=== PATIENT | male | born 1955 | race Caucasian/White ===

== ENCOUNTER 2021-04-01 17:54 | Inpatient (IN) | payer MEDICARE, SELFPAY ==
[2021-04-01 18:02] VITALS: BP 196/98; PULSE 79; RESP 15; O2SAT 100; BMI 29.7
--- NOTE | 2021-04-01 18:09 | ED_ITS ---
HPI - Chest Pain General: Chief Complaint: Chest Pain Stated Complaint: Chest Pains Time Seen by Provider: 04/01/21 18:08 History of Present Illness: Mr. Garcia is a 65-year-old gentleman with significant past medical history of CVA, NM with PCI, dyslipidemia, hypertension, and tobaccoism who presents to the emergency department due to chest pain. He reports pressure in the middle of his chest without significant radiation. Symptoms in the past been exertional however of pain increasing in frequency and intensity. Episode today is now largely constant and not relieved by rest like previous episodes. He denies other associated typical cardiac features. Intensity symptoms is moderate to severe. Course of been worsening. No other specific changes in health, exacerbating, relieving factors identified. Pertinent past history: coronary artery disease, prior NM and other Onset (ago): hour(s) Timing of current episode: constant Prior episodes: Yes Onset: during exertion Pain location: substernal Pain radiation: none Severity: moderate Quality: heaviness Relieving factors: nothing Exacerbating factors: exertion Review of Systems General: Reports: 10 or more systems reviewed and unremarkable except in HPI and below PFSH ED PFSH: Medical History (Updated 04/04/21 @ 00:00 by ) ASHD (arteriosclerotic heart disease) Chest pain COPD (chronic obstructive pulmonary disease) CVA (cerebral vascular accident) DJD (degenerative joint disease), lumbar Dyslipidemia Essential hypertension Glucose intolerance History of subarachnoid hemorrhage Myocardial infarction Statin intolerance Tobacco abuse Surgical History S/P angioplasty with stent S/P appendectomy Family History Mother CAD (coronary artery disease) Social History Smoking and tobacco status: current every day smoker cigarettes Alcohol intake: former Household members: significant other Marital status: Life Partner Current occupational status: disabled Current gender identity: Male Physical Exam Const: COMMON NORMALS: alert GENERAL APPEARANCE: cooperative and well developed HENMT: COMMON NORMALS: normocephalic and atraumatic HEAD & SCALP: normocephalic and atraumatic Eye: COMMON NORMALS: conjunctivae normal CONJUNCTIVA: Yes conjunctivae normal SCLERA: sclerae normal Neck/C-Spine: COMMON NORMALS: supple GENERAL: Yes trachea midline Resp: COMMON NORMALS: normal respiratory effort EFFORT & INSPECTION: Yes able to speak in complete sentences Cardio: COMMON NORMALS: regular rate and regular rhythm RATE: regular rate RHYTHM: regular rhythm GI: COMMON NORMALS: Soft to palpation PALPATION: Yes Soft to palpation and No Tenderness to palpation present (GI) PERCUSSION: normal to percussion Extremity: GENERAL: Yes normal exam except as noted and No edema Neuro: COMMON NORMALS: moves all extremities SENSORIUM/ORIENTATION: Yes alert and No Orientation impaired Psych: COMMON NORMALS: mental status grossly normal and Normal thought process present THOUGHT PROCESS: Normal thought process present Course ED course: - Patient was seen and evaluated by me at bedside - Patient placed on cardiac monitors, IV access obtained - Initial evaluation notable for exam as above - Aspirin given - Labs notable for no leukocytosis, normal hemoglobin. Metabolic panel without acute derangement to explain symptoms. Initial troponin is elevated with +2- hour troponin. - Imaging notable for no acute finding on chest x-ray to explain symptoms - Discussed case with cardiology on-call, ordered Plavix however the patient reports that he is unable to take Plavix, did order therapeutic Lovenox. Plan to keep n.p.o. for potential intervention. - Upon serial reexamination after treatment the patient was similar to improved with resolution of chest pain - Based on patient history, evaluation, labs, and imaging as interpreted the most likely cause of the patient's condition is NSTEMI - The results of ED evaluation were discussed with the patient including plan for admission due to requirement for level of care not available if discharged to prevent significant worsening/deterioration. - Hospitalist service contacted and agreed admit the patient - Patient was admitted without further deterioration or significant events. Note: Click bubbles or prepopulated jarquin in note writing are used for assistance w ith data collection and billing and are inherently more limited than narrative and other text portions of this note. Please use narrative for additional clinical history and defer to narrative/free test for any case of contradictory information. If information appears in only free text or click bubble it should be considered present or absent as reported. Please contact note fiction and nonfiction prose writer for clarifications of clinical information or contradictory information. MDM is a brief summary, contradictory or erroneous seeming information should be clarified and full note should be reviewed. Vital Signs: Vital signs: Vital Signs Temperature 98.3 F 04/03/21 05:47 Pulse Rate 74 04/03/21 10:33 Respiratory Rate 20 H 04/03/21 05:47 Blood Pressure 146/93 04/03/21 05:47 Pulse Oximetry 96 04/03/21 05:47 MDM - Chest Pain Medical Decision Making 65-year-old gentleman with history of NM status post PCI presenting with increasing frequency and now constant chest pressure without other typical cardiac features. Patient found to have NSTEMI and admitted to the hospital for further treatment and management. Medical Records I reviewed the patient's medical records. Lab Data I reviewed the patient's lab results. : 04/03/21 03:25 04/03/21 03:25 Radiology Impressions Chest X-Ray 04/01/21 18:23 IMPRESSION: No acute findings. Laboratory Results WBC 9.0 10^3/uL (4.0-10.0) 04/01/21 18:00 RBC 4.61 10^6/uL (4.1-5.3) 04/01/21 18:00 Hgb 14.9 g/dL (11.7-16.6) 04/01/21 18:00 Hct 42.5 % (42.0-52.0) 04/01/21 18:00 MCV 92.2 fl (80-94) 04/01/21 18:00 MCH 32.3 pg (28.0-34.0) 04/01/21 18:00 MCHC 35.1 g/dL (30.0-36.0) 04/01/21 18:00 RDW 12.7 % (12.1-15.1) 04/01/21 18:00 Plt Count 202 10^3/cmm (130-400) 04/01/21 18:00 MPV 12.0 fL (7.4-10.4) H 04/01/21 18:00 Neut % (Auto) 58.6 % 04/01/21 18:00 Lymph % (Auto) 32.6 % 04/01/21 18:00 [place] % (Auto) 6.0 % 04/01/21 18:00 Eos % (Auto) 2.0 % 04/01/21 18:00 Baso % (Auto) 0.6 % 04/01/21 18:00 Neut # (Auto) 5.30 10^3/uL (1.8-7.7) 04/01/21 18:00 Lymph # (Auto) 3.0 10^3/uL (0.8-4.8) 04/01/21 18:00 [place] # (Auto) 0.5 10^3/uL (0.2-0.9) 04/01/21 18:00 Eos # (Auto) 0.2 10^3/uL (0.0-0.8) 04/01/21 18:00 Baso # (Auto) 0.1 10^3/uL (0.0-0.1) 04/01/21 18:00 Nucleated RBC % (auto) 0 % 04/01/21 18:00 Nucleated RBCs # 0.0 /100WBC 04/01/21 18:00 Sodium 138 mmol/L (136-145) 04/01/21 18:00 Potassium 4.1 mmol/L (3.5-5.1) 04/01/21 18:00 Chloride 104 mmol/L (98-107) 04/01/21 18:00 Carbon Dioxide 23 mmol/L (22-29) 04/01/21 18:00 Anion Gap 15.1 (5-19) 04/01/21 18:00 BUN 12 mg/dL (8-23) 04/01/21 18:00 Creatinine 0.8 mg/dL (0.7-1.2) 04/01/21 18:00 GFR Calculation 97.6 mL/min (90-130) 04/01/21 18:00 Glucose 99 mg/dL (65-115) 04/01/21 18:00 Calculated Osmolality 286 mOsm/kg (285-295) 04/01/21 18:00 Calcium 9.6 mg/dL (8.5-10.5) 04/01/21 18:00 Total Bilirubin 0.3 mg/dL (0.15-1.2) 04/01/21 18:00 AST 21 U/L (0-40) 04/01/21 18:00 ALT 27 U/L (0-41) 04/01/21 18:00 Alkaline Phosphatase 93 IU/L (40-130) 04/01/21 18:00 Troponin T Baseline 70 ng/L (0-15) H 04/01/21 18:00 Troponin T 120 Minute 91.11 ng/L (0-15) H 04/01/21 20:36 Delta Troponin T 21.11 ABS# (0-10) H* 04/01/21 20:36 Troponin T Hi Sens 6Hr 104.3 ng/L (0-15) H 04/02/21 00:30 Troponin T Hi Sens 6Hr Delta 34.3 ng/L (0-12) H* 04/02/21 00:30 NT-Pro-B Natriuret Pep 228 pg/mL (0-125) H 04/01/21 18:00 Total Protein 6.8 g/dL (6.6-8.7) 04/01/21 18:00 Albumin 4.5 g/dL (3.5-5.2) 04/01/21 18:00 Globulin 2.3 g/dL (1.3-4.6) 04/01/21 18:00 Lipase 37 U/L (13-60) 04/01/21 18:00 EKG Data EKG 1: I personally reviewed and interpreted this EKG as follows: EKG interpretation date: 04/29/21 EKG interpretation time: 18:14 Interpretation: Twelve-lead EKG shows a regular rhythm at a rate of 78. ID interval 153, QRS duration 92, QTc 399. Normal axis. Interpretation: Sinus rhythm Discharge Plan Discharge Patient Disposition: Admitted As Inpatient Admit Provider: Josee Rodriguez Clinical Impression: Acute non-ST elevation myocardial infarction (NSTEMI) Condition: Stable Discharge Diet: Cardiac Discharge Activity: Increase activity as tolerated Coding Level of Care Code ED Boiler Plant Operator for Chg Jesús
--- NOTE | 2021-04-01 18:23 | XRR_ITS ---
PROCEDURE INFORMATION: Exam: XR Chest Exam date and time: 04/01/2021 6:23 PM Age: 65 years old Clinical indication: Sternal or substernal pain and left-sided; Additional info: Chest pain TECHNIQUE: Imaging protocol: XR of the chest. Views: 1 view. COMPARISON: CR Chest 1 [place] [id number] 02/14/2017 4:21 PM FINDINGS: Lungs: Unremarkable. No consolidation. Pleural spaces: Unremarkable. No pleural effusion. No pneumothorax. Heart/Mediastinum: Unremarkable. No cardiomegaly. Bones/joints: Unremarkable. XR/XR chest 1V portable [id number] IMPRESSION: No acute findings.
--- NOTE | 2021-04-01 18:24 | ECG_ITS ---
[facility] Test Date: 2021-04-01 Pat Name: Darius Garcia Department: Room: Gender: Male Tank Crewmember: : 1955 Requested By: Santy Singh Order Number: [id number] Harris MD: Zenia Cruz M.D. Measurements Intervals [place] Rate: 78 P: 55 HI: 153 QRS: 57 QRSD: 92 T: 29 QT: 365 QTc: 418 Interpretive Statements SINUS RHYTHM NONSPECIFIC ST & T-WAVE ABNORMALITY Compared to ECG 02/14/2017 18:19:38 T-wave abnormality now present Sinus arrhythmia no longer present ST (T wave) deviation no longer present Electronically Signed On 04-01-2021 20:41:16 ACTUARIAL TRAINEE by Zenia Cruz M.D. [id number]
[2021-04-01] MEDS: aspirin 81 mg Chew Tablet 324 MG PO (18:42)
[2021-04-01 18:43] VITALS: BP 177/98; PULSE 66; RESP 15; TEMP 36.7; O2SAT 100
[2021-04-01 18:43] LABS: Basophils # 0.1 10^3/uL (0.0-0.1); Basophils % 0.6 %; Eosinophils # 0.2 10^3/uL (0.0-0.8); Hematocrit 42.5 % (42.0-52.0); Hemoglobin 14.9 g/dL (11.7-16.6); Lymphocytes % 32.6 %; Mean Corpuscular HGB Conc 35.1 g/dL (30.0-36.0); Mean Corpuscular Hemoglobin 32.3 pg (28.0-34.0); Mean Corpuscular Volume 92.2 fl (80-94); Monocytes # 0.5 10^3/uL (0.2-0.9); Neutrophils % 58.6 %; Nucleated Red Blood Cells % 0 %; Platelet Count 202 10^3/cmm (130-400); Red Blood Count 4.61 10^6/uL (4.1-5.3); Red Cell Distribution Width 12.7 % (12.1-15.1)
[2021-04-01 19:17] LABS: Troponin(5th) Baseline 70 ng/L (0-15)
[2021-04-01 19:26] LABS: Alanine Aminotransferase 27 U/L (0-41); Albumin Level 4.5 g/dL (3.5-5.2); Alkaline Phosphatase 93 IU/L (40-130); Blood Urea Nitrogen 12 mg/dL (8-23); Calcium 9.6 mg/dL (8.5-10.5); Carbon Dioxide 23 mmol/L (22-29); Chloride 104 mmol/L (98-107); Globulin 2.3 g/dL (1.3-4.6); Glomerular Filtration Rate 97.6 mL/min (90-130); Glucose 99 mg/dL (65-115); Lipase 37 U/L (13-60); NT Pro B Type Natriuretic Pept 228 pg/mL (0-125); Osmolality Calculated 286 mOsm/kg (285-295); Sodium 138 mmol/L (136-145); Total Bilirubin 0.3 mg/dL (0.15-1.2); Total Protein 6.8 g/dL (6.6-8.7)
[2021-04-01 19:32] LABS: Anion Gap 15.1 (5-19); Aspartate Amino Transferase 21 U/L (0-40); Potassium 4.1 mmol/L (3.5-5.1)
[2021-04-01 21:14] LABS: Troponin 5 2HR 91.11 ng/L (0-15)
[2021-04-01 21:15] LABS: Troponin 5 2HR Delta 21.11 ABS# (0-10)
[2021-04-01] MEDS: enoxaparin 100 mg/mL Syringe 90 MG SUBCUT (21:43)
[2021-04-01 21:45] VITALS: BP 197/100; PULSE 70; RESP 17; O2SAT 97
--- NOTE | 2021-04-01 21:57 | PC.NURSE ---
Dr. Singh notified of BP 197/100
[2021-04-01 22:52] VITALS: BP 152/89; PULSE 66; RESP 14; O2SAT 98
[2021-04-01 23:47] VITALS: BMI 29.6
[2021-04-02] VITALS (80 sets, daily range): BP systolic 126–178; BP diastolic 74–134; PULSE 51–107; RESP 9–25; TEMP 36.5–36.8; O2SAT 90–100
--- NOTE | 2021-04-02 00:24 | ECG_ITS ---
Test Date: 2021-04-02 Pat Name: Darius Garcia Department: Room: 102 Gender: Male Hair Dresser: : 1955 Requested By: Santy Singh Order Number: [id number] Steven MD: Gurjit Galloway M.D. Measurements Intervals [place] Rate: 68 P: 46 OK: 165 QRS: 37 QRSD: 93 T: 46 QT: 388 QTc: 415 Interpretive Statements SINUS RHYTHM NONSPECIFIC ST & T-WAVE ABNORMALITY Compared to ECG 04/01/2021 18:06:36 No significant changes Electronically Signed On 04-02-2021 20:11:26 EXTRUSION MACHINE OPERATOR by Gurjit Galloway M.D. [id number]
[2021-04-02 01:11] LABS: Troponin 5 6HR 104.3 ng/L (0-15); Troponin 5 6HR Delta 34.3 ng/L (0-12)
--- NOTE | 2021-04-02 02:32 | PM.HP ---
Providers/Chief Complaint Admitting Physician: Josee Rodriguez MD Primary Care Provider: Westley Lyon MD Chief Complaint: Chest Pains History of Present Illness Darius Marti Case is a 65 year old male previous IA with coronary disease and intervention,h/o hemorrhagic CVA (2020), dyslipidemia. He has been experiencing increased frequency of chest pain episodes over the last 6 months for which he was evaluated by cardiology on 03/24/21. He was planned to undergo a stress test but this has not yet taken place. Presented to ER today with worsened chest pain ove rthe past 3 days, mainly with exertion, not relieved with nitroglycerin for ~2hrs. EKG upon presentation with sinus rhythm, ST depression in lead II,III, aVf. Troponin elevated with 2 hr and 6 hr delta at ~20 and ~30 respectively. Denies palpitations, syncope, shortness of breath. Review of Systems General: Reports: 10 or more systems reviewed and unremarkable except in HPI and below Const: Denies: fever(s), chills or body aches Eyes: Denies: change in vision, blurry vision or photophobia ENMT: Reports: hoarseness; Denies: throat pain, enlarged tonsils, odynophagia or nasal congestion Card: Denies: chest pain, palpitations, irregular heart rhythm, edema, swelling of feet/ankles, lightheadedness, pre-syncope, dyspnea on exertion or orthopnea Resp: Denies: dyspnea, productive cough, non-productive cough, wheezing, stridor, pain on inspiration, change in phlegm color, hemoptysis or chest congestion GI: Denies: abdominal pain, nausea, vomiting, hematemesis, coffee ground emesis, dysphagia, heartburn, diarrhea, constipation, GI cramping, change in stool character, hematochezia or melena : Denies: flank pain, dysuria, urinary frequency, urinary urgency, urinary hesitancy or hematuria Musc: Denies: neck pain, back pain, extremity pain, joint swelling, joint warmth or deformity Neuro: Denies: headache(s), numbness in extremities, weakness in extremities, sensory changes, difficulty walking, frequent falls, dizziness, vertigo, behavioral changes, Slurred speech present or seizure-like activity Psych: Denies: anxiety, depression, suicidal ideation or homicidal ideation Endo: Denies: polyuria, polydipsia, tired all the time, cold intolerance or hot flashes Lyle/Lymph: Denies: easy bruising or easy bleeding Medications/Allergies Home Medications Medication Instructions Recorded Confirmed Last Taken Type aspirin 325 mg tablet 325 mg PO QDAY 03/01/19 04/01/21 04/01/21 08:00 History nitroglycerin 0.4 mg sublingual 0.4 mg SUBLINGUAL Q5M PRN 90 Days 04/04/19 04/01/21 04/01/21 12:00 Rx tablet (Nitrostat) #25 tab omega-3 fatty acids 1,000 mg 1,000 mg PO QDAY 90 Days #90 cap 04/04/19 04/01/21 04/01/21 08:00 Rx capsule metoprolol tartrate 25 mg tablet 25 mg PO DAILY #180 tab 03/04/20 04/01/21 04/01/21 08:00 Rx lisinopril 40 mg tablet 40 mg PO DAILY #90 tab 03/24/21 04/01/21 04/01/21 08:00 Rx simvastatin 40 mg tablet 40 mg PO DAILY #90 tab 03/24/21 04/01/21 04/01/21 08:00 Rx Allergies Allergy/AdvReac Type Severity Reaction Status Date / Time Penicillins Allergy Unknown Unknown Verified 03/24/21 15:24 PFSH Acute PFSH: Medical History ASHD (arteriosclerotic heart disease) Chest pain COPD (chronic obstructive pulmonary disease) CVA (cerebral vascular accident) DJD (degenerative joint disease), lumbar Dyslipidemia Essential hypertension Glucose intolerance Myocardial infarction Statin intolerance Tobacco abuse Surgical History S/P angioplasty with stent S/P appendectomy Family History Mother CAD (coronary artery disease) Social History Smoking and tobacco status: current every day smoker cigarettes Alcohol intake: former Household members: significant other Marital status: Life Partner Current occupational status: disabled Current gender identity: Male Vitals/I&O/Wt Last Vital Signs Temp 98.3 F 04/02/21 00:14 Pulse 74 04/02/21 01:46 Resp 20 H 04/02/21 00:14 BP 154/80 04/02/21 00:14 Pulse Ox 99 04/02/21 00:14 Weight last 48 hrs Weight 88.36 kg Weight 88.904 kg Physical Exam Const: COMMON NORMALS: no acute distress, average body habitus, patient oriented x3, no limitations, healthy appearing, alert and well nourished HENMT: COMMON NORMALS: normocephalic and atraumatic HEAD & SCALP: normocephalic and atraumatic Eye: COMMON NORMALS: Equal, round and reactive pupils present, EOMs intact bilaterally, conjunctivae normal and no scleral icterus CONJUNCTIVA: Yes conjunctivae normal PUPIL: Yes Equal, round and reactive pupils present Neck/C-Spine: COMMON NORMALS: no JVD Resp: COMMON NORMALS: normal respiratory effort, No retractions, No use of accessory muscles, clear to auscultation bilaterally and percussion normal AUSCULTATION: clear to auscultation bilaterally PERCUSSION: percussion normal Cardio: COMMON NORMALS: no JVD, regular rate, regular rhythm, S1 normal heart sound present, S2 normal heart sound present, No gallops present (Cardio), No clicks present (Cardio), No murmurs present (Cardio), No rub (Cardio) and Peripheral pulses 2+ throughout RATE: regular rate RHYTHM: regular rhythm HEART SOUNDS: S1 normal heart sound present and S2 normal heart sound present PERIPHERAL PULSES: Peripheral pulses 2+ throughout GI: COMMON NORMALS: Normal to inspection, nondistended, normoactive bowel sounds present, Soft to palpation, non-tender, No hepatosplenomegaly present, no masses and no bruits PALPATION: Yes Soft to palpation and Yes No hepatosplenomegaly present Extremity: COMMON NORMALS: normal to inspection, full ROM, capillary refill normal, no joint enlargement, no clubbing, cyanosis or edema, no calf tenderness and no pedal edema Neuro: COMMON NORMALS: patient oriented x3, CN's II-XII intact bilaterally, moves all extremities, no focal motor deficits, no sensory deficits noted, deep tendon reflexes 2+ bilaterally and gait normal SENSORIUM/ORIENTATION: Yes alert Psych: COMMON NORMALS: mental status grossly normal, Normal thought process present, cooperative, normal affect, speech normal, activity/motor behavior normal, denies hallucinations, denies homicidal ideation and denies suicidal ideation SPEECH: Yes normal speech THOUGHT PROCESS: Normal thought process present Skin: COMMON NORMALS: no rashes or lesions noted, no wounds, turgor normal, no jaundice, no petechiae and no mottling GENERAL SKIN EXAM: no rashes or lesions noted and turgor normal Data : 04/01/21 18:00 04/01/21 18:00 A&P Assessment and plan (1) Acute non-ST elevation myocardial infarction (NSTEMI): Admit to CSU in view of NStemi EKG changes as above, delta of 20 and 30 at 2 and 6 hrs respectively Lovenox 1mg/kg q12h Asa 81mg po daily to continue Continue metoprolol and lisinopril cardiology consult echocardiogram MPO post midnight for possible cath Status: Acute Attestations Medical Necessity Statement*: anticipate >2midnight admission for management of NSTEMI, posisble [facility] Coding Level of Care Code Acute Software Systems Engineer for William Espinosa Diagnoses Acute non-ST elevation myocardial infarction (NSTEMI) I21.4
--- NOTE | 2021-04-02 04:13 | USCV_ITS ---
Darius Garcia Age: 65 Gender: M : 1955 Exam Date: 04/02/2021 05:52 Ordering Phys: Josee Rodriguez MD Technologist: Tamra Luna Exam Location: [facility] – [place] Indication: NSTEMI BP: 147 / 82 HR: 67 Rhythm: Sinus Technical Quality: Adequate MEASUREMENTS (Male / Female) Normal Values 2D ECHO LV Diastolic Diameter PLAX 3.6 cm 4.2 - 5.9 / 3.9 - 5.3 cm LV Systolic Diameter PLAX 2.4 cm LV Chamber Size 3.5 cm IVS Diastolic Thickness 1.1 cm 0.6 - 1.0 / 0.6 - 0.9 cm IVS Systolic Thickness 1.4 cm LVPW Diastolic Thickness 1.2 cm 0.6 - 1.0 / 0.6 - 0.9 cm LVPW Systolic Thickness 1.6 cm RV Chamber Size 3.0 cm LVOT Diameter 2.0 cm LV Ejection Fraction 2D Teich 63.7 % LV Ejection Fraction MOD 2C 81.1 % LV Ejection Fraction 2C AL 83.3 % LA Diameter 3.1 cm LA Width 2.9 cm LA Height 3.1 cm RA Width 2.7 cm RA Height 3.5 cm Aorta at Sinotubular Diameter 3.5 cm M-MODE Aortic Annulus Diameter 3.7 cm LA Ao Ratio MM 0.9 MV E Point Septal Separation 0.4 cm DOPPLER AV Peak Velocity 117.0 cm/s LVOT Peak Velocity 111.0 cm/s AV Area Cont Eq vti 3.7 cm squared AV Area Cont Eq pk 3.1 cm squared MV Area PHT 2.4 cm squared Mitral E to A Ratio 1.0 MV E' Velocity 35.0 cm/s Mitral E to MV E' Ratio 14.6 Mitral E to LV E' Lateral Ratio 15.0 Mitral E to LV E' Septal Ratio 14.3 TR Peak Velocity 157.7 cm/s TR Peak Gradient 10.0 mmHg TR Mean Velocity 109.4 cm/s TR Mean Gradient 5.9 mmHg TR Velocity Time Integral 36.9 cm TV Peak E Velocity 51.0 cm/s Right Atrial Pressure 3.0 mmHg Pulmonary Artery Systolic Pressu 13.0 mmHg PV Peak Velocity 72.0 cm/s RV Acceleration Time 0.1 s RV Ejection Time 0.3 s RV AcT/ET 0.3 FINDINGS Left Ventricle Normal left ventricular size and systolic function, EF 74 %. Grade I/IV diastolic dysfunction (abnormal relaxation filling pattern), normal to mildly elevated filling pressures. No regional wall motion abnormalities. Mild left ventricular hypertrophy. Right Ventricle The right ventricle is normal in size and function. Right Atrium The right atrium is normal in size. Left Atrium The left atrium is normal in size. Mitral Valve Trace mitral valve regurgitation. Aortic Valve No gross abnormalities noted Tricuspid Valve Trace tricuspid valve regurgitation. Pulmonic Valve Pulmonic valve not well visualized. Pericardium Normal pericardium without effusion. Aorta Normal ascending aorta dimension. CONCLUSIONS Normal left ventricular size and systolic function, EF 74 %. Grade I/IV diastolic dysfunction (abnormal relaxation filling pattern), normal to mildly elevated filling pressures. No regional wall motion abnormalities. Mild left ventricular hypertrophy. Trace of mitral and tricuspid regurgitation There is no pericardial effusion. There are no intracardiac masses. No previous study is available for comparison. Dr Gurjit Galloway MD FACC (Electronically Signed) Final Date: 02 April 2021 09:32 S
--- NOTE | 2021-04-02 08:12 | P.CONIM_ITS ---
Providers/Reason For Consult Consulting Physician/Specialty*: DR LILA Galloway/ Cardiology Reason for Consult*: Patient with history of coronary artery disease, recent PCI, presenting with chest pain and elevated troponin T Attending Physician: Sofie Teixeira MD Primary Care Provider: Westley Lyon MD History of Present Illness History of Present Illness Darius Marti Case is a 65 year old male with a history of atherosclerotic heart disease, status post multiple PCI's, is presenting with complaints of increasing episodes of chest pain. He was found to elevated troponin T with a significant delta at 2 and 6 hours. Cardiology consult is requested for further cardiac evaluation recommendations. This patient apparently has been in his baseline state of health up until 3 weeks ago when he started having chest pains. The pains are mostly exertional. They are of mid substernal in origin and radiating across the chest, occasionally associated with some shortness of breath. Occasionally the pain also happens with eating. It may last anywhere from 5 to 10 minutes and then go es away by itself. Yesterday the pain was lasting for more than 2 hours. He took 1 sublingual nitro which did not relieve the pain. Intensity of the pain was mild to moderate. Because of the persistence of the symptoms, he decided to come to the hospital. According the patient, the chest pain is getting more frequent, lasting longer and more severe. He has no other associated symptoms or radiation of pain. He had the first PCI in 2007 at [facility]. Second PCI was in 2009. For the third time, he had a PCI by Dr. Hillman here at the [facility], in 2013. Since the last PCI, he has been doing okay up until recently. He was seen by Dr. Kay on the of this month. At that time, he was scheduled for a stress test to further evaluate the chest pain. Patient has a history of hemorrhagic CVA, 2015. Subarachnoid hemorrhage from an aneurysm?. He had a coil embolization for this. Has not had a recurrence of CVA since then. Has a history of hypertension dyslipidemia. No history for diabetes. Both of his parents had a coronary artery disease and myocardial infarction's in the 60s and 70s. He used to be heavy alcoholic but quit since the CVA. He smokes 4 to 5 cigarettes a day lately. Review of Systems General: Reports: 10 or more systems reviewed and unremarkable except in HPI and below Narrative: He has been having easy fatigability for the last few months. Const: Denies: fever(s), chills or body aches Eyes: Denies: change in vision, blurry vision or photophobia ENMT: Reports: hoarseness; Denies: throat pain, enlarged tonsils, odynophagia or nasal congestion Card: Reports: chest pain and dyspnea on exertion; Denies: palpitations, irregular heart rhythm, edema, swelling of feet/ankles, lightheadedness, pre-syncope or orthopnea Resp: Denies: dyspnea, productive cough, non-productive cough, wheezing, stridor, pain on inspiration, change in phlegm color, hemoptysis or chest congestion GI: Denies: abdominal pain, nausea, vomiting, hematemesis, coffee ground emesis, dysphagia, heartburn, diarrhea, constipation, GI cramping, change in stool character, hematochezia or melena : Denies: flank pain, dysuria, urinary frequency, urinary urgency, urinary hesitancy or hematuria Musc: Denies: neck pain, back pain, extremity pain, joint swelling, joint war mth or deformity Neuro: Denies: headache(s), numbness in extremities, weakness in extremities, sensory changes, difficulty walking, frequent falls, dizziness, vertigo, be havioral changes, Slurred speech present or seizure-like activity Psych: Denies: anxiety, depression, suicidal ideation or homicidal ideation Endo: Denies: polyuria, polydipsia, tired all the time, cold intolerance or hot flashes Lyle/Lymph: Denies: easy bruising or easy bleeding Medications/Allergies Home Medications Medication Instructions Recorded Confirmed Last Taken Type aspirin 325 mg tablet 325 mg PO QDAY 03/01/19 04/01/21 04/01/21 08:00 History nitroglycerin 0.4 mg sublingual 0.4 mg SUBLINGUAL Q5M PRN 90 Days 04/04/19 04/01/21 04/01/21 12:00 Rx tablet (Nitrostat) #25 tab omega-3 fatty acids 1,000 mg 1,000 mg PO QDAY 90 Days #90 cap 04/04/19 04/01/21 04/01/21 08:00 Rx capsule metoprolol tartrate 25 mg tablet 25 mg PO DAILY #180 tab 03/04/20 04/01/21 04/01/21 08:00 Rx lisinopril 40 mg tablet 40 mg PO DAILY #90 tab 03/24/21 04/01/21 04/01/21 08:00 Rx simvastatin 40 mg tablet 40 mg PO DAILY #90 tab 03/24/21 04/01/21 04/01/21 08:00 Rx Allergies Allergy/AdvReac Type Severity Reaction Status Date / Time Penicillins Allergy Unknown Unknown Verified 03/24/21 15:24 PFSH Acute PFSH: Medical History (Updated 04/02/21 @ 09:45 by Gurjit Galloway MD) ASHD (arteriosclerotic heart disease) Chest pain COPD (chronic obstructive pulmonary disease) CVA (cerebral vascular accident) DJD (degenerative joint disease), lumbar Dyslipidemia Essential hypertension Glucose intolerance Myocardial infarction Statin intolerance Tobacco abuse Surgical History S/P angioplasty with stent S/P appendectomy Family History Mother CAD (coronary artery disease) Social History Smoking and tobacco status: current every day smoker cigarettes Alcohol intake: former Household members: significant other Marital status: Life Partner Current occupational status: disabled Current gender identity: Male Vitals/I&O/Wt Last Vital Signs Temp 98 F 04/02/21 03:40 Pulse 83 04/02/21 03:40 Resp 14 04/02/21 03:40 BP 147/82 04/02/21 03:40 Pulse Ox 97 04/02/21 03:40 04/01/21 04/02/21 04/02/21 22:59 06:59 14:59 Intake Total 240 / 240 Balance 240 / 240 Weight last 48 hrs Weight 194 lb 12.8 oz Weight 196 lb Physical Exam Narrative: GENERAL: The patient is alert and oriented times three. Not in any acute distress. HEENT: No significant pallor, icterus or lymphadenopathy. The pupils are reactant to light. Oral cavity: There are no mucous membrane lesions. Funduscopic examination: The fundus is not visualized NECK: Trachea appears to be central. No masses noted. No JVD or thyromegaly appreciated. No carotid bruit. RESPIRATORY: Chest is symmetrical. No intercostals muscle retraction or any accessory muscle activation. There is no chest wall tenderness. Breath sounds are heard bilaterally. No rales or rhonchi heard. No evidence of any consolidation. BREASTS: Deferred. HEART: The PMI is in the 5th left intercostals space just inside the midclavicular line. No palpable precordial events. S1 and S2 are normal. No S3 or S4 heard. No pericardial rub or any click heard. ABDOMEN: No vessel pulsations or distention. No tenderness. No organomegaly appreciated. No abdominal bruit. Bowel sounds are normally heard. : Deferred. RECTAL: Deferred. LYMPHATIC: No lymphadenopathy noted in the neck or groin. EXTREMITIES: No edema or cyanosis. No clubbing. The peripheral pulses are palpable and fairly good volume and amplitude. The dorsalis pedis and posterior pulses are relatively weak. MUSCULOSKELETAL: No acute joint deformities or any swelling SKIN: There are no significant scars or skin rash noted. NEUROPSYCHIATRIC: The patient is alert and oriented x3. Appears to be in a good mood. The higher functions are grossly within normal limits. No tremors or rigidity noted. Data : 04/01/21 18:00 04/01/21 18:00 Other Labs: Laboratory Last Values WBC 9.0 10^3/uL (4.0-10.0) 04/01/21 18:00 RBC 4.61 10^6/uL (4.1-5.3) 04/01/21 18:00 Hgb 14.9 g/dL (11.7-16.6) 04/01/21 18:00 Hct 42.5 % (42.0-52.0) 04/01/21 18:00 MCV 92.2 fl (80-94) 04/01/21 18:00 MCH 32.3 pg (28.0-34.0) 04/01/21 18:00 MCHC 35.1 g/dL (30.0-36.0) 04/01/21 18:00 RDW 12.7 % (12.1-15.1) 04/01/21 18:00 Plt Count 202 10^3/cmm (130-400) 04/01/21 18:00 MPV 12.0 fL (7.4-10.4) H 04/01/21 18:00 Neut % (Auto) 58.6 % 04/01/21 18:00 Lymph % (Auto) 32.6 % 04/01/21 18:00 Bladen % (Auto) 6.0 % 04/01/21 18:00 Eos % (Auto) 2.0 % 04/01/21 18:00 Baso % (Auto) 0.6 % 04/01/21 18:00 Neut # (Auto) 5.30 10^3/uL (1.8-7.7) 04/01/21 18:00 Lymph # (Auto) 3.0 10^3/uL (0.8-4.8) 04/01/21 18:00 Bladen # (Auto) 0.5 10^3/uL (0.2-0.9) 04/01/21 18:00 Eos # (Auto) 0.2 10^3/uL (0.0-0.8) 04/01/21 18:00 Baso # (Auto) 0.1 10^3/uL (0.0-0.1) 04/01/21 18:00 Nucleated RBC % (auto) 0 % 04/01/21 18:00 Nucleated RBCs # 0.0 /100WBC 04/01/21 18:00 Sodium 138 mmol/L (136-145) 04/01/21 18:00 Potassium 4.1 mmol/L (3.5-5.1) 04/01/21 18:00 Chloride 104 mmol/L (98-107) 04/01/21 18:00 Carbon Dioxide 23 mmol/L (22-29) 04/01/21 18:00 Anion Gap 15.1 (5-19) 04/01/21 18:00 BUN 12 mg/dL (8-23) 04/01/21 18:00 Creatinine 0.8 mg/dL (0.7-1.2) 04/01/21 18:00 GFR Calculation 97.6 mL/min (90-130) 04/01/21 18:00 Glucose 99 mg/dL (65-115) 04/01/21 18:00 Calculated Osmolality 286 mOsm/kg (285-295) 04/01/21 18:00 Calcium 9.6 mg/dL (8.5-10.5) 04/01/21 18:00 Total Bilirubin 0.3 mg/dL (0.15-1.2) 04/01/21 18:00 AST 21 U/L (0-40) 04/01/21 18:00 ALT 27 U/L (0-41) 04/01/21 18:00 Alkaline Phosphatase 93 IU/L (40-130) 04/01/21 18:00 Troponin T Baseline 70 ng/L (0-15) H 04/01/21 18:00 Troponin T 120 Minute 91.11 ng/L (0-15) H 04/01/21 20:36 Delta Troponin T 21.11 ABS# (0-10) H* 04/01/21 20:36 Troponin T Hi Sens 6Hr 104.3 ng/L (0-15) H 04/02/21 00:30 Troponin T Hi Sens 6Hr Delta 34.3 ng/L (0-12) H* 04/02/21 00:30 NT-Pro-B Natriuret Pep 228 pg/mL (0-125) H 04/01/21 18:00 Total Protein 6.8 g/dL (6.6-8.7) 04/01/21 18:00 Albumin 4.5 g/dL (3.5-5.2) 04/01/21 18:00 Globulin 2.3 g/dL (1.3-4.6) 04/01/21 18:00 Lipase 37 U/L (13-60) 04/01/21 18:00 CXR: My impression: Borderline cardiac silhouette with no lung infiltrates. No acute pathology noted. Echo: My impression: Normal left ventricular size and systolic function, EF 74 %. ?Grade I/IV diastolic dysfunction (abnormal relaxation filling ?pattern), normal to mildly elevated filling pressures. No ?regional wall motion abnormalities. Mild left ventricular ?hypertrophy. ?Trace of mitral and tricuspid regurgitation ?There is no pericardial effusion. ?There are no intracardiac masses. ?No previous study is available for comparison. EKG 1: My Interpretation: The EKG showed normal sinus rhythm with some nonspecific ST changes. The repeat EKG did not reveal any new changes. EKG computer-generated impression: Chest X-Ray 04/01/21 18:23 IMPRESSION: No acute findings. A&P Assessment and plan (1) Acute non-ST elevation myocardial infarction (NSTEMI): The patient's her clinical features are consistent with a non-ST elevation myocardial infarction. Hemodynamically seems to be stable. He continues to have intermittent episodes of chest discomfort. Even this morning, he had some chest discomfort. EKG is not with any new changes. His symptoms are suggestive of an unstable angina. Patient was given subcu Lovenox and p.o. Plavix. He is also on aspirin and Lipitor. The current medications may be continued. The echocardiogram findings are as discussed below. Status: Acute (2) Statin intolerance: Patient is currently on a low-dose of atorvastatin. May continue the same at this point. Status: Acute (3) Essential hypertension: The blood pressure is a stage II. We will try to optimize the antihypertensive medications. Status: Acute (4) History of subarachnoid hemorrhage: Patient had a coil embolization of the intracranial aneurysm. Has not had a recurrence of CVA, since 2014. Status: Acute (5) ASHD (arteriosclerotic heart disease): Is known to have coronary artery disease and multiple PCI's in 2007, 2009 and 2013. Currently his symptoms are suggestive of an unstable angina complicated with non-ST relation myocardial infarction. He is currently hemodynamically stable. In order to further evaluate his coronary status, he requires a cardiac catheterization. Status: Acute Plan For further management of patient's condition, he requires a cardiac catheterization. This was discussed with the patient and his in detail. I will be discussing the situation with Dr. Kay, the patient's supervisor color making. Most likely he may go ahead with a cardiac catheterization this morning. Dr. Kay is going to see the patient this morning and make the final decision. Consult Attestations Medical Necessity Statement: Patient requires continued hospital stay for close monitoring and further management Coding Level of Care Code Acute Clay Digger for Chg Fwd History Detailed Exam Detailed Medical Decision Making High Complexity Diagnoses Acute non-ST elevation myocardial infarction (NSTEMI) I21.4 Statin intolerance Z78.9 Essential hypertension I10 History of subarachnoid hemorrhage Z86.79 ASHD (arteriosclerotic heart disease) I25.10
[2021-04-02] MEDS: atorvastatin 40 mg Tablet 20 MG PO (08:23)
[2021-04-02] MEDS: pantoprazole DR 40 mg Tablet PO (08:23)
[2021-04-02] MEDS: lisinopril 20 mg Tablet 40 MG PO (08:24)
[2021-04-02] MEDS: metoprolol tartrate 25 mg Tablet PO (08:24)
[2021-04-02] MEDS: aspirin 81 mg EC Tablet PO (08:24)
--- NOTE | 2021-04-02 09:14 | XACV_ITS ---
Exam Room: [facility] Ht: 173 cm Wt: 88 kg BSA: 2.08 m2 Gender: Male : 1955 Any Known Allergies: Penicillins Exam Priority: Routine Procedure(s): Procedure Description: Diagnostic procedure Procedure Description: PCI procedure Procedure Description: Drug Eluting Coronary Stent Procedure Description: PTCA Procedure Description: Miscellaneous Procedure Description: ACT Procedure Description: Coronary Angiography Diagnostic Cath Status: Urgent Diagnostic Findings * LAD: Patent . No significant stenosis is noted. * RCA: Proximal RCA has significant 70% instent restenosis. Distal RCA has 60-70% stenosis. * Mid Circumflex: severe 90% stenosis, it is instent restenosis. RENZO: 2 flow. * Left Main has no disease. * Coronary angiography shows right dominance. PCI Status: Urgent PCI Indication: NSTE - ACS Interventional Findings * Procedure Detail: We engaged Left main artery with XB 3.5 guide catheter. We then crossed the LCx stenosis with Run through guidewire. This was followed by predilation with [id number] mm NC balloon. This was followed by placement of 2.81u48cr Resolute Jr PRESTON. This was followed by post dilation with 3.0X12mm NC balloon.At this time, final angiogram was performed that showed excellent stent expansion and RENZO 3 flow. Guidewire and guidecatheter were removed. * We then turned our attention to RCA. It was engaged with JR 4 guide catheter. Run through guidewire was placed in the distal vessel. We dilated the proximal vessel instent restenosis with 3.0x12mm NC balloon. We decided to treated distal RCA moderate to severe stenosis medically. At this time, final angiogram was performed that showed excellent stent expansion and RENZO 3 flow. Guidewire and guidecatheter were removed and patient left the technology lab teacher in a stable condition. * Mid Circumflex: 90% stenosis treated with a MDT NC EUPHORA RX [id number] BALLOON, MDT R JR 2.75X30 PRESTON, and Balloon. 0% residual stenosis, RENZO: 3 flow. Conclusions 1. Severe mid left circumflex artery instent restenosis s/p successful revascularization with PRESTON X 1. 2. Severe proximal RCA instent restenosis. S/p successful revascularization with balloon angioplasty. Distal RCA has moderate to severe stenosis that will be treated medically at this time. 3. There is severe coronary artery disease with two vessel disease. 4. Mid Circumflex was treated with a Balloon, Drug Eluting Stent, and Balloon. Recommendations * Continue aspirin and plavix for atleast 1 year. * High intensity statin therapy. * Beta piper as tolerated. * Outpatient cardiology follow up in 4 weeks. Interventional RX Recommendation: PCI w/o planned CABG Diagnostic RX Recommendation: PCI w/o planned CABG Anticoagulation: Heparin Pressures Phase:Rest AO : 102 / 95 ( 99 ) @ 7:58:00 AM 97 / 88 ( 93 ) @ 8:11:00 AM 118 / 105 ( 112 ) @ 8:22:00 AM 88 / 73 ( 82 ) @ 8:36:00 AM Clinical Evaluation EBL: 5mL-10mL Procedural Details Procedure Consent Obtained. Admit Source: In Patient. Pre-Procedure Time Out. Identified patient by full name and date of as verbalized by the patient/guarantor. Does the consent match the physician's order: Yes. Accurate & Complete Informed Consent: Yes. Inpatient/Outpatient History & Physical on Chart: Yes. Visualize and Verify Site with Patient/Guarantor: N/A. Relevant Radiology Images available: N/A. The risks, benefits, and alternatives of sedation and/or procedure were discussed by physician. The patient agrees to continue. Pre-op teaching completed and patient verbalized understanding. Procedure started. [facility] Clinical Fraility Score: 3: Managing Well. Beauty Counselor Indications: Worsening Angina. Chest Pain Symptom Assessment: Atypical Angina. Correct patient, site and procedure confirmed by cath team. Current diagnosis: NSTEMI. PERRLA. Strong, equal hand web sizer bilaterally. Lungs clear x 5 lobes. IV Site on Arrival: 20 gauge in the left anticubital. IV Fluids: 0.9% NaCl at KVO. 0 mL infused prior to technology lab teacher. Pre Procedural Pulses: bilateral dorsalis pedis was 2+. Pre Procedural Pulses: right radial was 2+. Oxygen started at 2liters/min via nasal canula. right groin was prepped with chloroprep then draped in the usual sterile fashion. right radial was prepped with chloroprep then draped in the usual sterile fashion. Baseline sample Acquired. HR: 55 BPM. Physician notified. Physician arrived. Physician scrubbed in. Immediate Pre-Procedure Time Out. Correct Patient: Yes; Correct Procedure: Yes; Correct Site: Yes; Correct Patient Position: Yes; Correct Supplies: Yes; Dried Flammable Prep: Yes; Blood Products Available: n/a. Lidocaine 1% infiltrated to the right radial. Arterial access obtained. A 5 tongan TIG catheter in over wire. Multiple views taken of left coronary artery. Catheter redirected to the RCA. Multiple views taken of right coronary artery. Catheter out. 6 tongan XB 3.5 guide catheter was inserted over the wire. Diane Belcher RN electric accounting machine operator during procedure. Inflation number : 1 A MDT NC EUPHORA RX [id number] BALLOON was prepped and advanced across the Mid CX , then inflated to 12 SABRINA for 0:09 seconds. Inflation number: 2 The MDT NC EUPHORA RX 2.98B61AH BALLOON was reinflated across the Mid CX, to 12 SABRINA for 0:03 seconds. Inflation number: 3 The MDT NC EUPHORA RX 2.50L53IM BALLOON was reinflated across the Mid CX, to 14 SABRINA for 0:30 seconds. Inflation number: 4 The MDT NC EUPHORA RX 2.88Q79HI BALLOON was reinflated across the Mid CX, to 14 SABRINA for 0:22 seconds. Balloon inserted to lesion in the mid Circ. Inflation number: 5 The MDT NC EUPHORA RX [id number] BALLOON was reinflated across the Mid CX, to 14 SABRINA for 0:19 seconds. Balloon out. Runthrough guidewire was advanced through the guide catheter to lesion in the mid Circ. Stent inserted to lesion in the mid Circ. Inflation Number : 6 A MDT R JR 2.75X30 PRESTON -Lot Number# [id number] exp 11/07/2021 was prepped and advanced across the Mid CX. The stent was deployed at 14 SABRINA for 0:30 seconds. Stent balloon out over wire. Balloon inserted to lesion in the mid Circ. Inflation number : 7 A MDT NC EUPHORA RX 3.08U73AP BALLOON was prepped and advanced across the Mid CX , then inflated to 20 SABRINA for 0:14 seconds. Inflation number: 8 The MDT NC EUPHORA RX 3.46N76YQ BALLOON was reinflated across the Mid CX, to 16 SABRINA for 0:17 seconds. Inflation number: 9 The MDT NC EUPHORA RX 3.50D77NK BALLOON was reinflated across the Mid CX, to 16 SABRINA for 0:13 seconds. ACT drawn. Results 300 seconds. Therapeutic limits - pre-heparin administration 90-150 seconds and monitoring heparin during a vascular procedure >250 seconds. Balloon out. Results checked. Wire out. Guide catheter out. 6 tongan JR 4 guide catheter was inserted over the wire. Inflation number: 1 The MDT NC EUPHORA RX 3.18C09TQ BALLOON was reinflated across the Mid RCA, to 18 SABRINA for 0:30 seconds. Balloon inserted to lesion in the mid RCA. Inflation number: 2 The MDT NC EUPHORA RX 3.97N63DI BALLOON was reinflated across the Mid RCA, to 18 SABRINA for 0:20 seconds. Runthrough guidewire was advanced through the guide catheter to lesion in the mid RCA. Balloon out. Wire out. Guide catheter out. A TR Band was successful obtaining hemostatsis at the Right Radial artery insertion site. Estimated blood loss: 5mL-10mL. Medication's Wasted: Heparin = 1000 mL. Medication's Wasted: Nitro = 49.6 mg. Medication's Wasted: Lidocaine 1% = 18 mL. Post-op diagnosis: CAD. Post Procedure: Pulses reassessed and unchanged. PERRLA. Strong, equal hand web sizer bilaterally. No VTE prophylaxis required. Total IV fluids: 300 mL. PCI Indication: NSTE. Complications: none. Estimated blood loss: 5mL-10mL. Responsiveness - Normal response to verbal stimuli; alert and oriented, PERRLA. Airway - Unaffected, no intervention required; spontaneous ventilation. Circulation: W/N/L, pulses unchanged. Nausea/Vomiting: No. Procedure completed. Patient transferred by wheelchair to 1st floor. Vital chart was stopped. Access Site Site: Right Radial artery Sheath Size: 6 Fr Hemostasis Method: TR Band Hemostasis Success: Successful Procedure Medications Start: 9:52 AM Stop: 9:52 AM Medication: Versed Amount: 2 mg Route: I.V. Start: 9:53 AM Stop: 9:53 AM Medication: Fentanyl Amount: 50 mcg Route: I.V. Start: 9:55 AM Stop: 9:55 AM Medication: Heparin Amount: 5000 units Route: I.V. Start: 9:55 AM Stop: 9:55 AM Medication: Nitrogylcerin Amount: 200 mcg Route: I.A. Start: 10:02 AM Stop: 10:02 AM Medication: Heparin Amount: 3000 units Route: I.V. Start: 10:08 AM Stop: 10:08 AM Medication: 0.9% Saline Amount: 250 ml Route: I.V. bolus Start: 10:16 AM Stop: 10:16 AM Medication: Heparin Amount: 2000 units Route: I.V. Start: 10:25 AM Stop: 10:25 AM Medication: Nitrogylcerin Amount: 200 mcg Route: I.C. Start: 10:27 AM Stop: 10:27 AM Medication: Aggrastat 12.5 mg/250 mL Amount: 44 ml Route: I.V. bolus Start: 10:27 AM Stop: 10:27 AM Medication: Aggrastat 12.5 mg/250 mL Amount: 15.8 ml/hr Route: I.V. drip Start: 10:33 AM Stop: 10:33 AM Medication: Versed Amount: 1 mg Route: I.V. Start: 10:39 AM Stop: 10:39 AM Medication: Plavix Amount: 600 mg Route: P.O. Start: 10:42 AM Stop: 10:42 AM Medication: Fentanyl Amount: 25 mcg Route: I.V. Start: 10:42 AM Stop: 10:42 AM Medication: Heparin Amount: 1000 units Route: I.V. I, the attending physician, have reviewed and verified all procedure medications. Yes, all medications given per verbal order History/Risk Factors Hypertension: Yes Dyslipidemia: Yes Peripheral Arterial Disease (PAD): No Myocardial Infarction (KS): Yes Obesity: No Renal Disease: No Tobacco Use: Former Prior Interventions PCI: Yes CABG: No Valve Surgery: No Date of PCI: 11/05/2013 Report Signatures Finalized by Alvaro Kay MD on 04/14/2021 09:44 AM
--- NOTE | 2021-04-02 09:19 | PM.MISC ---
Miscellaneous Note Note: Patient is chest pain-free this morning, I requested Dr. Galloway to see him as he is n.p.o., Dr. Galloway was not aware that he was consulted overnight This morning patient was watching television no active chest pain Hemodynamically stable He did endorse on and off chest discomfort at rest overnight He was laying flat S1, S2 Abdomen soft No signs of edema Saturating well on room air He is not vaccinated for COVID-19 We will follow up with cardiology recommendation most likely he will need an angiogram Change diet diet after Dr. Galloway's evaluation
--- NOTE | 2021-04-02 09:44 | W.PM.OPSUD ---
Surgery/Procedure H&P Update DATE OF PROCEDURE: April 02, 2021 DATE H&P PERFORMED: 04/02/21 H&P UPDATE INFORMATION: I have reviewed H&P completed within last 30 days, I have examined patient prior to procedure and No changes to prior documentation PREOP DIAGNOSIS: NSTEMI PRIMARY INDICATION FOR PROCEDURE: NSTEMI PLANNED PROCEDURE: Left heart cath with possible percutaneous coronary intervention PATIENT REASSESSED PRIOR TO SEDATION, WITH NO CHANGE NOTED: Yes PHYSICAL EXAM: alert, oriented x 3, clear to auscultation bilaterally and regular rate & rhythm AIRWAY EVAL/ANESTHESIA PLAN: ASA III, Monitored Anesthesia, Local Anesthesia, Risks, benefits & alternatives of sedation and/or procedure discussed and Patient agrees to continue as planned ADDITIONAL INFORMATION: Left heart cath with possible percutaneous coronary intervention
--- NOTE | 2021-04-02 09:50 | PC.NURSE ---
to cardiac center medical and lab director via w/c at [id number]
--- NOTE | 2021-04-02 10:31 | PC.CHAP ---
Pastoral Care Encounter/Spiritual Assessment Type of Contact [] Declined business strategist visit [] Patient/Family/Request visit [] Outpatient visit [] Follow-up visit [] Physician referral [] Code/Alert [x] Routine visit [] Staff referral [] Actively dying [] Patient sleeping [] Family support [] [] Out of room [] Palliative care [] x] Receiving care in room [] Pre-surgical visit [] Trauma [] Long length of stay [] ICU visit [] Other: Relational/Emotional Strength [] Patient feels connected with others/family/visitors/staff [] Distress [] Loneliness/isolation [] Abandonment Spirituality of Patient [] Person of Tess [] Attends Latter-Day of their Tess [] Believes in Prayer [] Reads Bible or Evangelical materials [] There are Spiritual issues to be addressed Auto Camp Attendant Interventions [x] Prayer [] Active listening [] Non-anxious presence [] Spiritual/emotional support [] Crisis/trauma care [] Spiritual counseling [] Bereavement support [] Provided bereavement packet [] Provided Bible/devotional materials [] Provided toy/stuffed animal, coloring book to patient or family member [] Provided Communion [] Anointing/[place] [] Salvation [x] Completed spiritual assessment [] Other: Impact on Illness or Injury [] Angry [] Fearful [] Anxious [] Often cries [] Exhaustion [] Unable to work [] Unable to attend latter day [] Unable to walk/stand [] Unable to read [] Unable to drive [] Unable to eat/drink [] Unable to sleep [] Unable to be with family [] Patient intubated [] Other: Summary Time spent with patient
[2021-04-02] MEDS: sodium chloride 0.9% 1,000 ML 100 ML IV (10:50)
--- NOTE | 2021-04-02 12:11 | PC.NURSE ---
return from cardiac labor delivery specialist via w/c at 10:50.report received.pt is drowsy but easily awakened.sr on monitor.right radial tr band is on and inflated.right hand is warm to touch and with brisk capillary refill.palpable radial pulse noted distal to tr band.no hematoma noted.instructed pt in activity restrictions s/p tr band removal..and instructed to notify staff for any bleeding,pain,numbness..or for any concerns at all.pt verb understanding of instructions.
[2021-04-02] MEDS: omega-3 fatty acids 1,000 mg Capsule 1000 MG PO (12:44)
--- NOTE | 2021-04-02 15:07 | PC.NURSE ---
tirofiban discontinued at [address] regan/clare
--- NOTE | 2021-04-02 16:42 | PC.NURSE ---
tr band slowly deflated an removed at 1545.right hand remains warm to touch and with brisk capillary refill.no hematoma noted.palpable radial pulse noted.instructed in activity restrictions s/p tr band removal..and instructed to notify staff for any bleeding,bruising,numbness,pain..or for any conerns at all.pt verb understanding of instructions.
[2021-04-03 00:13] VITALS: BP 133/81; PULSE 88; RESP 17
[2021-04-03 04:15] LABS: Basophils % 0.4 %; Eosinophils # 0.2 10^3/uL (0.0-0.8); Eosinophils % 1.4 %; Hemoglobin 13.7 g/dL (11.7-16.6); Lymphocytes # 2.3 10^3/uL (0.8-4.8); Mean Corpuscular HGB Conc 35.1 g/dL (30.0-36.0); Mean Corpuscular Hemoglobin 32.3 pg (28.0-34.0); Mean Platelet Volume 12.2 fL (7.4-10.4); Monocytes # 0.6 10^3/uL (0.2-0.9); Monocytes % 5.8 %; Neutrophils # 7.26 10^3/uL (1.8-7.7); Neutrophils % 70.1 %; Nucleated Red Blood Cells % 0 %; Platelet Count 194 10^3/cmm (130-400); Red Blood Count 4.24 10^6/uL (4.1-5.3); Red Cell Distribution Width 12.9 % (12.1-15.1); White Blood Count 10.4 10^3/uL (4.0-10.0)
[2021-04-03 04:35] LABS: Alanine Aminotransferase 29 U/L (0-41); Alkaline Phosphatase 83 IU/L (40-130); Aspartate Amino Transferase 21 U/L (0-40); Blood Urea Nitrogen 15 mg/dL (8-23); Calcium 9.2 mg/dL (8.5-10.5); Carbon Dioxide 22 mmol/L (22-29); Chloride 107 mmol/L (98-107); Globulin 2.4 g/dL (1.3-4.6); Glomerular Filtration Rate 113.9 mL/min (90-130); Glucose 123 mg/dL (65-115); Magnesium 2.1 mg/dL (1.7-2.3); Osmolality Calculated 290 mOsm/kg (285-295); Sodium 139 mmol/L (136-145); Total Bilirubin 0.5 mg/dL (0.15-1.2); Total Protein 6.4 g/dL (6.6-8.7)
[2021-04-03 05:47] VITALS: BP 146/93; PULSE 75; RESP 20; TEMP 36.8; O2SAT 96
[2021-04-03 05:52] VITALS: PULSE 74
--- NOTE | 2021-04-03 08:27 | PM.PN ---
Subjective Subjective: Patient had left heart catheter yesterday that showed severe mid left circumflex in-stent restenosis with a superimposed thrombus. And he underwent successful revascularization with PRESTON x1. His RCA stent also had moderate to severe 60 to 70% in-stent restenosis. He underwent balloon angioplasty of that. Distal RCA has 60 to 70% stenosis. Patient is doing well. He denies any significant chest pain right now. Overnight had 1-2 episodes of minor discomfort in the chest. Vitals/I&O/Wt Last Vital Signs Temp 98.3 F 04/03/21 05:47 Pulse 74 04/03/21 05:52 Resp 20 H 04/03/21 05:47 BP 146/93 04/03/21 05:47 Pulse Ox 96 04/03/21 05:47 04/02/21 04/03/21 04/03/21 22:59 06:59 14:59 Intake Total 1361.667 / 1721.667 Output Total 300 / 1200 Balance 1061.667 / 521.667 Weight last 48 hrs Weight 194 lb 12.8 oz Weight 196 lb Physical Exam Narrative: GENERAL: Patient is alert, awake and oriented x3. [] NECK: No jugular vein distension. [] HEENT: No cyanosis. No icterus. No pallor. [] HEART: Regular S1 and S2. No murmur, rub or gallop. [] LUNGS: Clear to auscultate bilaterally. [] ABDOMEN: Soft, nontender and nondistended. Positive bowel sounds. No guarding, rebound or tenderness. [] CENTRAL NERVOUS SYSTEM: Grossly nonfocal. [] EXTREMITIES: Lower extremities with no edema bilaterally. Pulses palpable in the lower extremities, both dorsalis pedis and posterior tibial. [] Data : 04/03/21 03:25 04/03/21 03:25 A&P Assessment and plan (1) Acute non-ST elevation myocardial infarction (NSTEMI): Patient underwent successful revascularization of mid left circumflex artery with PRESTON x1. He also had balloon angioplasty of proximal RCA performed. Continue aspirin and Plavix for at least 1 year. Given his minor chest discomfort episodes overnight, we will start on low-dose isosorbide mononitrate 30 mg daily. Continue rest of medications Status: Acute (2) Statin intolerance: Patient is currently on a low-dose statins. Status: Acute (3) Essential hypertension: The blood pressure is a stage II. We will try to optimize the antihypertensive medications. Status: Acute (4) History of subarachnoid hemorrhage: Patient had a coil embolization of the intracranial aneurysm. Has not had a recurrence of CVA, since 2014. Status: Acute (5) ASHD (arteriosclerotic heart disease): Is known to have coronary artery disease and multiple PCI's in 2007, 2009 and 2013. Currently his symptoms are suggestive of an unstable angina complicated with non-ST relation myocardial infarction. He is currently hemodynamically stable. In order to further evaluate his coronary status, he requires a cardiac catheterization. Status: Acute Plan Patient is overall doing well. Continue aspirin and Plavix for 1 year Continue statin therapy We will start Imdur 30 mg daily. Patient is stable to be discharged from cardiology standpoint. Close follow-up in 1 week. Please call with questions Attestations Medical Necessity Statement*: Care expected to cross 2 midnights. Coding Level of Care Code Acute Production Support Developer for [facility]s Diagnoses Acute non-ST elevation myocardial infarction (NSTEMI) I21.4 Statin intolerance Z78.9 Essential hypertension I10 History of subarachnoid hemorrhage Z86.79 ASHD (arteriosclerotic heart disease) I25.10
[2021-04-03] MEDS: metoprolol tartrate 25 mg Tablet PO (09:12)
[2021-04-03] MEDS: aspirin 81 mg EC Tablet PO (09:12)
[2021-04-03] MEDS: pantoprazole DR 40 mg Tablet PO (09:12)
[2021-04-03] MEDS: omega-3 fatty acids 1,000 mg Capsule 1000 MG PO (09:12)
[2021-04-03] MEDS: atorvastatin 40 mg Tablet 20 MG PO (09:12)
[2021-04-03] MEDS: clopidogrel 75 mg Tablet PO (09:13)
[2021-04-03] MEDS: lisinopril 20 mg Tablet 40 MG PO (09:13)
--- NOTE | 2021-04-03 09:47 | PM.DCS ---
Discharge Providers Date of Admission: 04/02/21 02:24 Date of Discharge: April 03, 2021 Attending Provider at Admission: Josee Rodriguez MD Attending Provider at Discharge: Sofie Teixeira MD Primary Care Provider: Westley Lyon MD Diagnoses at Discharge Discharge Diagnosis (1) Acute non-ST elevation myocardial infarction (NSTEMI): Status: Acute (2) Statin intolerance: Status: Acute (3) Essential hypertension: Status: Acute (4) History of subarachnoid hemorrhage: Status: Acute (5) ASHD (arteriosclerotic heart disease): Status: Acute Reason for Visit Reason for Visit: Chest Pains Hospital Course Hospital Course 65 male who has established coronary disease, multiple stents, active smoker, smokes 4 cigarettes a day, history of rheumatic heart disease when he was young, received penicillin and developed allergic reaction after 3 years of penicillin. Presented to hospital with chief complaint of worsening chest pain. He was diagnosed with non-ST segment elevation NC, he was started on ACS protocol, Dr. Galloway evaluated him and angiogram was requested same day. Patient had left heart catheter yesterday that showed severe mid left circumflex in-stent restenosis with a superimposed thrombus.? And he underwent successful revascularization with PRESTON x1.? His RCA stent also had moderate to severe 60 to 70% in-stent restenosis.? He underwent balloon angioplasty of that.? Distal RCA has 60 to 70% stenosis. Angioplasty was done by Dr. Kay. He was monitored for next 24 hours after his angioplasty. Patient was complaining of intermittent pressure-like chest discomfort after the procedure, Dr. Kay recommended adding Imdur and following up with cardiology clinic within a week he thinks he is okay to be discharged home with optimization of his antianginal medications and addition of Plavix. Counseled on smoking cessation. Echo showed EF 74% grade 1 diastolic dysfunction no regional wall motion abnormality noted trace mitral and tricuspid valve regurgitation Physical Exam Narrative: Patient lying comfortably in his bed Chest pain-free Doing well on room air No audible stridor or wheezing Abdomen soft S1, S2 Nonfocal neuro exam He has walked in the hallway with no recurrence of pain on walking Discharge Data Studies Completed and Pending Completed Studies During Hospitalization Category Date Time Status XR chest 1V portable [id number] Urgent Exams 04/01/21 18:23 Completed CV. echo complete* [id number] Routine Ultrasound 04/02/21 04:13 Completed Pending at discharge Category Date Time Status ELECTRONIC WARFARE TECHNICAL request for service Routine Exams 04/02/21 09:14 Taken Radiology Impressions Chest X-Ray 04/01/21 18:23 IMPRESSION: No acute findings. Laboratory Results WBC 10.4 10^3/uL (4.0-10.0) H 04/03/21 03:25 RBC 4.24 10^6/uL (4.1-5.3) 04/03/21 03:25 Hgb 13.7 g/dL (11.7-16.6) 04/03/21 03:25 Hct 39.0 % (42.0-52.0) L 04/03/21 03:25 MCV 92.0 fl (80-94) 04/03/21 03:25 MCH 32.3 pg (28.0-34.0) 04/03/21 03:25 MCHC 35.1 g/dL (30.0-36.0) 04/03/21 03:25 RDW 12.9 % (12.1-15.1) 04/03/21 03:25 Plt Count 194 10^3/cmm (130-400) 04/03/21 03:25 MPV 12.2 fL (7.4-10.4) H 04/03/21 03:25 Neut % (Auto) 70.1 % 04/03/21 03:25 Lymph % (Auto) 22.0 % 04/03/21 03:25 [place] % (Auto) 5.8 % 04/03/21 03:25 Eos % (Auto) 1.4 % 04/03/21 03:25 Baso % (Auto) 0.4 % 04/03/21 03:25 Neut # (Auto) 7.26 10^3/uL (1.8-7.7) 04/03/21 03:25 Lymph # (Auto) 2.3 10^3/uL (0.8-4.8) 04/03/21 03:25 [place] # (Auto) 0.6 10^3/uL (0.2-0.9) 04/03/21 03:25 Eos # (Auto) 0.2 10^3/uL (0.0-0.8) 04/03/21 03:25 Baso # (Auto) 0.0 10^3/uL (0.0-0.1) 04/03/21 03:25 Nucleated RBC % (auto) 0 % 04/03/21 03:25 Nucleated RBCs # 0.0 /100WBC 04/03/21 03:25 Sodium 139 mmol/L (136-145) 04/03/21 03:25 Potassium 4.0 mmol/L (3.5-5.1) 04/03/21 03:25 Chloride 107 mmol/L (98-107) 04/03/21 03:25 Carbon Dioxide 22 mmol/L (22-29) 04/03/21 03:25 Anion Gap 14.0 (5-19) 04/03/21 03:25 BUN 15 mg/dL (8-23) 04/03/21 03:25 Creatinine 0.7 mg/dL (0.7-1.2) 04/03/21 03:25 GFR Calculation 113.9 mL/min (90-130) 04/03/21 03:25 Glucose 123 mg/dL (65-115) H 04/03/21 03:25 Calculated Osmolality 290 mOsm/kg (285-295) 04/03/21 03:25 Calcium 9.2 mg/dL (8.5-10.5) 04/03/21 03:25 Magnesium 2.1 mg/dL (1.7-2.3) 04/03/21 03:25 Total Bilirubin 0.5 mg/dL (0.15-1.2) 04/03/21 03:25 AST 21 U/L (0-40) 04/03/21 03:25 ALT 29 U/L (0-41) 04/03/21 03:25 Alkaline Phosphatase 83 IU/L (40-130) 04/03/21 03:25 Troponin T Baseline 70 ng/L (0-15) H 04/01/21 18:00 Troponin T 120 Minute 91.11 ng/L (0-15) H 04/01/21 20:36 Delta Troponin T 21.11 ABS# (0-10) H* 04/01/21 20:36 Troponin T Hi Sens 6Hr 104.3 ng/L (0-15) H 04/02/21 00:30 Troponin T Hi Sens 6Hr Delta 34.3 ng/L (0-12) H* 04/02/21 00:30 NT-Pro-B Natriuret Pep 228 pg/mL (0-125) H 04/01/21 18:00 Total Protein 6.4 g/dL (6.6-8.7) L 04/03/21 03:25 Albumin 4.0 g/dL (3.5-5.2) 04/03/21 03:25 Globulin 2.4 g/dL (1.3-4.6) 04/03/21 03:25 Lipase 37 U/L (13-60) 04/01/21 18:00 Vitals Last Vital Signs Temp 98.3 F 04/03/21 05:47 Pulse 74 04/03/21 05:52 Resp 20 H 04/03/21 05:47 BP 146/93 04/03/21 05:47 Pulse Ox 96 04/03/21 05:47 Discharge Plan Discharge Patient Disposition: Home Condition: Stable Prescriptions: New clopidogrel 75 mg Tablet 75 mg PO DAILY Qty: 90 4RF aspirin 81 mg Tablet,Delayed Release (Dr/Ec) 81 mg PO DAILY Qty: 90 4RF pantoprazole 40 mg Tablet,Delayed Release (Dr/Ec) 20 mg PO DAILY Qty: 60 2RF isosorbide mononitrate 30 mg tablet extended release 24 hr 30 mg PO DAILY Qty: 90 2RF Continued simvastatin 40 mg tablet 40 mg PO DAILY Qty: 90 3RF lisinopril 40 mg tablet 40 mg PO DAILY Qty: 90 3RF nitroglycerin [Nitrostat] 0.4 mg tablet, sublingual 0.4 mg SUBLINGUAL Q5M PRN (Reason: chest pain) 90 Days Qty: 25 3RF omega-3 fatty acids 1,000 mg capsule 1,000 mg PO QDAY 90 Days Qty: 90 3RF metoprolol tartrate 25 mg tablet 25 mg PO DAILY Qty: 180 3RF Discontinued aspirin 325 mg tablet 325 mg PO QDAY 0RF Discharge Orders: Discharge Order (Routine); Ordered 04/03/21 Ordered By: Sofie Teixeira Referrals: Westley Lyon MD [Primary Care Provider] - Alexus Mcdaniel FNP [Nurse Practitioner] - 1 week Discharge Diet: Cardiac Discharge Activity: Increase activity as tolerated Patient Instructions: Isosorbide Mononitrate (By mouth) (Imdur, Imdur ER, Ismo), Coronary Angioplasty (DC), Cigarette Smoking and Your Health (GEN), Opioid Safety, Quitting Smoking Discharge Attestations Time Spent in Discharge Care*: less than 30 min Quality Metrics Clinical Quality Measures [ No reported AMI, CVA or VTE this stay] Coding Level of Care Code Acute Chg FW DC note Diagnoses Acute non-ST elevation myocardial infarction (NSTEMI) I21.4 Statin intolerance Z78.9 Essential hypertension I10 History of subarachnoid hemorrhage Z86.79 ASHD (arteriosclerotic heart disease) I25.10
--- NOTE | 2021-04-03 10:11 | PC.CHAP ---
Pastoral Care Encounter/Spiritual Assessment Type of Contact [] Declined automobile mechanic motor visit [] Patient/Family/Request visit [] Outpatient visit [] Follow-up visit [] Physician referral [] Code/Alert [x] Routine visit [] Staff referral [] Actively dying [] Patient sleeping [] Family support [] [] Out of room [] Palliative care [] [] Receiving care in room [] Pre-surgical visit [] Trauma [] Long length of stay [] ICU visit [] Other: Relational/Emotional Strength [] Patient feels connected with others/family/visitors/staff [] Distress [] Loneliness/isolation [] Abandonment Spirituality of Patient [] Person of Tess [] Attends Spiritism of their Tess [] Believes in Prayer [] Reads Bible or Mandaen materials [] There are Spiritual issues to be addressed Tare Worker Interventions [x] Prayer [x] Active listening [x] Non-anxious presence [x] Spiritual/emotional support [] Crisis/trauma care [] Spiritual counseling [] Bereavement support [] Provided bereavement packet [] Provided Bible/devotional materials [] Provided toy/stuffed animal, coloring book to patient or family member [] Provided Communion [] Anointing/[place] [] Salvation [x] Completed spiritual assessment [] Other: Impact on Illness or Injury [] Angry [] Fearful [] Anxious [] Often cries [] Exhaustion [] Unable to work [] Unable to attend buddhism [] Unable to walk/stand [] Unable to read [] Unable to drive [] Unable to eat/drink [] Unable to sleep [] Unable to be with family [] Patient intubated [] Other: Summary met patient in ER yesterday.. feeling somewhat better Time spent with patient 10 min
[2021-04-03 10:33] VITALS: PULSE 74
--- NOTE | 2021-04-03 11:58 | PC.NURSE ---
discharge instructions given and explained.pt and spouse verb understanding of instructions.medications provided by [facility] pharmacy..meds to beds program.discharged ambulatory to exit.friend and spouse to drive pt home.
== END 2021-04-03 11:30 | disposition home or self-care (01) | DRG 247 ==
LOC: ER 21:57 → CSU 23:20
PROVIDERS: Internal Medicine; Admitting Provider Student in an Organized Health Care Education/Training Program; Emergency Provider Emergency Medicine; Family Provider Family Medicine; PCP Family Medicine; Visit Provider Internal Medicine
PROC: 027034Z Dilation of Coronary Artery, One Artery with Drug-eluting Intraluminal Device, Percutaneous Approach (ICD-10-PCS; principal; 2021-04-02 10:00)
PROC: 027034Z Dilation of Coronary Artery, One Artery with Drug-eluting Intraluminal Device, Percutaneous Approach (ICD-10-PCS; 2021-04-02 10:00)
DX: I21.4 Non-ST elevation (NSTEMI) myocardial infarction (principal); T82.855A Stenosis of coronary artery stent, initial encounter; Y71.1 Therapeutic (nonsurgical) and rehabilitative cardiovascular devices associated with adverse incidents; I25.118 Atherosclerotic heart disease of native coronary artery with other forms of angina pectoris; I10 Essential (primary) hypertension; E78.5 Hyperlipidemia, unspecified; J44.9 Chronic obstructive pulmonary disease, unspecified; F17.210 Nicotine dependence, cigarettes, uncomplicated; F10.21 Alcohol dependence, in remission; Z78.9 Other specified health status; Z86.79 Personal history of other diseases of the circulatory system; Z86.73 Personal history of transient ischemic attack (TIA), and cerebral infarction without residual deficits; Z95.5 Presence of coronary angioplasty implant and graft; Z79.82 Long term (current) use of aspirin; Z98.61 Coronary angioplasty status; Z82.49 Family history of ischemic heart disease and other diseases of the circulatory system
CPT/HCPCS: 36415; 71045; 80053; 83690; 83735; 83880; 84484; 85025; 85347; 92920; 93005; 93306; 93454; 96372; 99285; C1725; C1769; C1874; C1887; C1894; C9600; J1644; J1650; J2250; J3010; J3490; J7030; Q9967

== ENCOUNTER → 2021-04-14 08:06 | Outpatient (BNVA) | payer MEDICARE, SELFPAY | PROVIDERS: Family Provider Family Medicine; PCP Family Medicine; Visit Provider Nurse Practitioner Family | DX: I25.2 Old myocardial infarction (principal); I25.10 Atherosclerotic heart disease of native coronary artery without angina pectoris; F17.210 Nicotine dependence, cigarettes, uncomplicated; Z09 Encounter for follow-up examination after completed treatment for conditions other than malignant neoplasm | CPT/HCPCS: 80048; 99214 ==

== ENCOUNTER → 2021-10-03 09:48 | Outpatient (BNVA) | payer MEDICARE, SELFPAY | PROVIDERS: Family Provider Family Medicine; PCP Family Medicine; Visit Provider Internal Medicine | DX: I25.10 Atherosclerotic heart disease of native coronary artery without angina pectoris (principal); I10 Essential (primary) hypertension; E78.5 Hyperlipidemia, unspecified; I25.2 Old myocardial infarction; F17.210 Nicotine dependence, cigarettes, uncomplicated | CPT/HCPCS: 99214 ==

== ENCOUNTER → 2022-04-03 09:46 | Outpatient (BNVA) | payer MEDICARE, SELFPAY | PROVIDERS: Family Provider Family Medicine; PCP Family Medicine; Visit Provider Internal Medicine | DX: I25.10 Atherosclerotic heart disease of native coronary artery without angina pectoris (principal); E78.5 Hyperlipidemia, unspecified; I10 Essential (primary) hypertension; Z86.73 Personal history of transient ischemic attack (TIA), and cerebral infarction without residual deficits; I25.2 Old myocardial infarction; F17.210 Nicotine dependence, cigarettes, uncomplicated; Z79.82 Long term (current) use of aspirin | CPT/HCPCS: 99214 ==

== ENCOUNTER → 2022-10-02 10:07 | Outpatient (BNVA) | payer MEDICARE, SELFPAY | PROVIDERS: Family Provider Family Medicine; PCP Family Medicine; Visit Provider Internal Medicine | DX: I25.10 Atherosclerotic heart disease of native coronary artery without angina pectoris (principal); E78.5 Hyperlipidemia, unspecified; I10 Essential (primary) hypertension; Z72.0 Tobacco use; Z86.73 Personal history of transient ischemic attack (TIA), and cerebral infarction without residual deficits | CPT/HCPCS: 99214 ==

== ENCOUNTER → 2023-04-20 09:34 | Outpatient (BNVA) | payer MEDICARE, SELFPAY | PROVIDERS: Family Provider Family Medicine; PCP Family Medicine; Visit Provider Nurse Practitioner Family | DX: I25.10 Atherosclerotic heart disease of native coronary artery without angina pectoris (principal) | CPT/HCPCS: 93005; 99214 ==

== ENCOUNTER 2023-05-13 07:45 | Outpatient (CLI) | payer MEDICARE, SELFPAY ==
--- NOTE | 2023-05-13 | ECG_ITS ---
[facility] Test Date: 2023-05-13 Pat Name: Darius Garcia Department: Room: Gender: Male [employer]its Supervisor: Diane Martin : 1955 Requested By: Alexus Mcdaniel Order Number: [id number] Steven MD: Alvaro Kay M.D. Interpretive Statements NAME OF STUDY: LEXISCAN SESTAMIBI STRESS TEST INDICATION: [Worsening Fatigue, Angina, Dyspnea] Procedure: At the baseline, the blood pressure was 156/78 mmHg with a heart rate of 60 bpm. The electrocardiogram showed normal sinus rhythm, borderline ST depressions in leads II, III, aVF and V5 and V6. The Lexiscan was infused over a period of 20 seconds. A total of 0.4 mg of Lexiscan was infused. The stress phase was continued for a total of 5 minutes. Heart rate was at the end of stress phase was 100 bpm and a blood pressure of 154/77 mmHg. The EKG at the peak infusion revealed normal sinus rhythm with significant ST depressions in the inferior leads II, III, aVF and V5 and V6. Sestamibi was injected 20 seconds after the Lexiscan infusion. Blood pressure at the end of recovery phase was 164/83 mmHg with a heart rate of 66 bpm. Conclusion: 1. Abnormal EKG response to Lexiscan infusion with ST depressions in inferior leads II, III and aVF and lateral V5 and 6. 2. Patient had Lexiscan induced chest pressure. 3. Normal blood pressure and heart rate response. 4. Sestamibi/sestamibi perfusion scan pending; see separate report. Electronically Signed On 05-27-2023 11:54:51 CDT by Alvaro Kay M.D. [id number]
[2023-05-13 08:03] VITALS: BMI 29.6
--- NOTE | 2023-05-13 08:04 | NMCV_ITS ---
NM albert perf SPECT r/s* [id number] Darius Garcia Age: 67 Gender: M : 1955 Exam Date: 05/13/2023 08:53 Ordering Phys: Alexus Mcdaniel Technologist: JUNO Rosado Exam Location: [facility] Indications: ATHEROSCLEROTIC HEART DISEASE STRESS TEST Please see separate stress test report in [facility] for full findings IMAGE PROTOCOL Rest/Stress 1 Lexiscan Day Radiopharmaceutical Dose (mCi) Administration Site Administered by Rest: Tc-99m 10.6 IV JUNO Monte Sestamibi Stress:Tc-99m 32.5 IV JUNO Monte Sestamibi Rest: 13-May-2023 60 Discovery 630 Stress: 13-May-2023 30 Discovery 630 0.4mg Lexiscan. Images obtained in supine and prone position. SPECT RESULTS Technical Quality: Excellent Raw Data Analysis: Normal Image Corrections: No attenuation or motion correction applied Summed Stress Score: 7 Summed Rest Score: 3 Summed Difference Score: 4 PERFUSION FINDINGS There is a moderate intensity, medium to large sized, reversible perfusion defect noted in in the inferolateral wall.This is consistent with medium to large sized area of ischemia in the left circumflex artery territory. Small area of reversible perfusion defect was noted in inferior wall. This is consistent with small area of ischemia in RCA territory. FUNCTIONAL RESULTS (calculated via Gated SPECT) Stress Image LV EF (%): 74 Stress EDV (mL):74 TID: 1.08 Stress ESV (mL):19 FUNCTIONAL FINDINGS: There is normal left ventricular systolic function. IMPRESSIONS 1. Medium to large area of ischemia is seen in the left circumflex artery territory. 2. Small area of prior infarct in the RCA territory. 3. LV systolic function is normal Alvaro Kay MD (Electronically Signed) Final Date: 13 May 2023 11:40 S
[2023-05-13] MEDS: regadenoson 0.4 Mg/5 ml Syringe 0.400000000000000022 MG IVP (09:28)
[2023-05-13] MEDS: aminophylline 25 mg/mL SDV 10 mL IVP (09:40)
[2023-05-13 09:45] VITALS: BP 164/83; PULSE 68
== END 2023-05-13 07:46 | disposition home or self-care (01) ==
PROVIDERS: Family Provider Family Medicine; PCP Family Medicine; Visit Provider Nurse Practitioner Family
DX: R07.9 Chest pain, unspecified (principal); I25.9 Chronic ischemic heart disease, unspecified
CPT/HCPCS: 36415; 78452; 93017; 96374; 96375; A9500; J0280; J2785

== ENCOUNTER 2023-06-07 05:44 | Outpatient (CLI) | payer MEDICARE, SELFPAY ==
[2023-06-07] VITALS (8 sets, daily range): BP systolic 125–157; BP diastolic 73–83; PULSE 51–70; RESP 14–17; TEMP 36.5–36.9; O2SAT 96–99; BMI 29.7; BMI 29.4
[2023-06-07 06:30] LABS: Basophils # 0.1 10^3/uL (0.0-0.1); Basophils % 0.6 %; Eosinophils # 0.3 10^3/uL (0.0-0.8); Eosinophils % 3.7 %; Hematocrit 42.3 % (37-53); Lymphocytes # 2.5 10^3/uL (0.8-4.8); Lymphocytes % 29.4 %; Mean Corpuscular Volume 94.2 fl (82-101); Mean Platelet Volume 11.1 fL (7.4-10.4); Monocytes # 0.4 10^3/uL (0.2-0.9); Monocytes % 4.5 %; Neutrophils # 5.31 10^3/uL (1.8-7.7); Neutrophils % 61.6 %; Nucleated Red Blood Cells % 0 %; Platelet Count 232 10^3/cmm (157-399); Red Blood Count 4.49 10^6/uL (3.85-5.65); Red Cell Distribution Width 12.8 % (12.1-15.1); White Blood Count 8.62 10^3/uL (3.29-11.43)
[2023-06-07 06:41] LABS: Anion Gap 12.2 (5-19); Blood Urea Nitrogen 12 mg/dL (8-23); Calcium 9.2 mg/dL (8.5-10.5); Carbon Dioxide 26 mmol/L (22-29); Chloride 103 mmol/L (98-107); Glucose 103 mg/dL (65-115); Osmolality Calculated 284 mOsm/kg (285-295); Potassium 4.2 mmol/L (3.5-5.1); Sodium 137 mmol/L (136-145)
[2023-06-07] MEDS: diphenhydrAMINE 50 mg Capsule PO (06:46)
--- NOTE | 2023-06-07 07:00 | XACV_ITS ---
Exam Room: 2 Ht: 173 cm Wt: 89 kg BSA: 2.09 m2 Gender: Male : 1955 Any Known Allergies: Penicillins Exam Priority: Routine Procedure(s): Procedure Description: Diagnostic procedure Procedure Description: PCI procedure Procedure Description: Drug Eluting Coronary Stent Procedure Description: PTCA Procedure Description: Miscellaneous Procedure Description: ACT Procedure Description: Coronary Angiography Diagnostic Cath Status: Elective Diagnostic Findings * INDICATION: 71-year-old man with past medical history of CAD who has been having worsening shortness of breath and chest discomfort symptoms. Had a recent stress test showing ischemia in the left circumflex artery territory. Also infarction in the RCA territory. Plan for coronary angiogram with possible percutaneous coronary intervention. * Left Main has no significant disease. * Left Anterior Descending has no significant disease. * Distal Circumflex: Subtotally occuled vessel with 2 serial lesions. First lesion is 99% in stent restenosis and second lesion is 99% distal to edge of the stent. * RCA has patent prior stents with * mild to moderate in-stent restenosis. * In mid vessel between the mid RCA and distal RCA stent, the unstented segment has severe 80% stenosis.. * Coronary angiography shows right dominance. PCI Status: Elective PCI Indication: Other Interventional Findings * Mid Right Coronary Artery: 80% stenosis treated with a AB TREK 2.75X20 RX BALLOON, MDT R JR 3.0X30 PRESTON, and MDT NC EUPHORA RX 3.15T21CP BALLOON. 0% residual stenosis, RENZO: 3 flow. * Distal Circumflex: 99% stenosis treated with a AB TREK 2.75X20 RX BALLOON, AB TREK 2.25X12 RX BALLOON, MDT R JR 2.5X18 PRESTON, and MDT NC EUPHORA RX 3.19B25HH BALLOON. 0% residual stenosis, RENZO: 3 flow. * Procedure detail: After diagnostic images were obtained, we proceeded with PCI of RCA and left circumflex artery. We engaged RCA with JR4 guide catheter. IV heparin was administered to maintain anticoagulation. 0.014 run-through guidewire was used to cross the stenosis and was put in distal vessel. We predilated the stenosis with 2.75 x 20 mm semicompliant balloon. This was followed by placement of 3.0 x 30 mm resolute [place] drug-eluting stent. We postdilated the stent with 3.25 x 12 mm NC balloon. Same balloon was used to dilate old stent as well. At this time final angiogram was performed that showed excellent stent expansion, no residual stenosis and RENZO-3 flow. Guidewire and guide catheter were removed. We then turned our attention to distal left circumflex artery stenosis. It was subtotally occluded. We engaged left main artery with XB 3.5 guide catheter. Run-through guidewire was used to cross the stenosis. We first attempted to predilated with 2.75 x 20 mm semicompliant balloon however balloon could not totally cross the stenosis. We then used 2.25 x 12 mm semicompliant balloon. We predilated the lesion. This was followed by placement of 2.5 x 18 mm resolute Jr drug-eluting stent. 3.25 x 12 mm NC balloon was used to post dilate the overlapping segment 2 stents. And proximal segment of old stent. At this time final angiogram showed excellent stent expansion, no residual stenosis and RENZO-3 flow. Guidewire and guide catheter were removed. Patient left the Sound [employer] in a stable condition.. Conclusions 1. Severe stenosis of distal left circumflex artery s/p successful revascularization with 1 stent. Severe stenosis of mid to distal RCA status post successful revascularization with 1 stent.. 2. Mid Right Coronary Artery was treated with a Balloon, Drug Eluting Stent, and Balloon. 3. Distal Circumflex was treated with a Balloon, Balloon, Drug Eluting Stent, and Balloon. Recommendations * Dual antiplatelet therapy with aspirin and plavix for atleast 1 year. * High intensity statin therapy. * Outpatient cardiology follow up in 4 weeks. Interventional RX Recommendation: PCI w/o planned CABG Diagnostic RX Recommendation: PCI w/o planned CABG Anticoagulation: Heparin Pressures Phase:Rest AO : 125 / 64 ( 89 ) @ 9:26:00 AM 97 / 60 ( 77 ) @ 9:28:00 AM 93 / 57 ( 74 ) @ 9:29:00 AM 114 / 68 ( 90 ) @ 9:39:00 AM 130 / 72 ( 99 ) @ 9:49:00 AM 136 / 69 ( 97 ) @ 9:50:00 AM 134 / 65 ( 92 ) @ 10:18:00 AM 106 / 58 ( 78 ) @ 10:30:00 AM Clinical Evaluation EBL: 5mL-10mL Procedural Details Pre-Procedure Time Out. Identified patient by full name and date of as verbalized by the patient/guarantor. Does the consent match the physician's order: Yes. Accurate & Complete Informed Consent: Yes. Inpatient/Outpatient History & Physical on Chart: Yes. If H&P is completed, is and addenduem needed: No; If yes, is the addendum complete: N/A. Visualize and Verify Site with Patient/Guarantor: N/A. Relevant Radiology Images available: Yes. Pre-op teaching completed and patient verbalized understanding. The risks, benefits, and alternatives of sedation and/or procedure were discussed by physician. The patient agrees to continue. Procedure started. Current Diagnosis : Chest Pain. [facility] Clinical Fraility Score: 3: Managing Well. [employer] Indications: Worsening Angina. Chest Pain Symptom Assessment: Typical Angina Symptoms. Correct patient, site and procedure confirmed by cath team. Current diagnosis: Chest Pain. IV Site on Arrival: 20 gauge in the left anticubital. PERRLA. Strong, equal hand baby nurse bilaterally. Lungs clear x 5 lobes. IV Fluids: 0.9% NaCl at KVO. 0 mL infused prior to geophysical laboratory chief. Pre Procedural Pulses: right dorsalis pedis was Doppled. Pre Procedural Pulses: left dorsalis pedis was 2+. Pre Procedural Pulses: right posterior tibial was 3+. Pre Procedural Pulses: left posterior tibial was Doppled. Pre Procedural Pulses: bilateral radial was 2+. Oxygen started at 2liters/min via nasal canula. right groin was prepped with chloroprep then draped in the usual sterile fashion. right radial was prepped with chloroprep then draped in the usual sterile fashion. Baseline sample Acquired. HR: 54 BPM. Physician notified. Physician arrived. Physician scrubbed in. Immediate Pre-Procedure Time Out. Correct Patient: Yes; Correct Procedure: Yes; Correct Site: Yes; Correct Patient Position: Yes; Correct Supplies: Yes; Dried Flammable Prep: Yes; Blood Products Available: N/A;. Lidocaine 1% infiltrated to the right radial. Arterial access obtained. A 5 new zealander TIG catheter in over wire. Multiple views taken of left coronary artery. Catheter redirected to the RCA. Multiple views taken of right coronary artery. Catheter removed over the exchange wire. 6 new zealander JR 4 guide catheter was inserted over the wire. Runthrough guidewire was advanced through the guide catheter to lesion in the mid RCA. Inflation number : 1 A AB TREK 2.75X20 RX BALLOON was prepped and advanced across the Mid RCA , then inflated to 12 SABRINA for 0:06 seconds. Inflation number: 2 The AB TREK 2.75X20 RX BALLOON was reinflated across the Mid RCA, to 16 SABRINA for 0:11 seconds. Inflation number: 3 The AB TREK 2.75X20 RX BALLOON was reinflated across the Mid RCA, to 14 SABRINA for 0:12 seconds. Balloon out. Results checked. Inflation Number : 4 A MDT R JR 3.0X30 PRESTON -Lot Number# [id number] exp: 07/08/2025 was prepped and advanced across the Mid RCA. The stent was deployed at 13 SABRINA for 0:17 seconds. Stent balloon out over wire. Inflation number : 5 A MDT NC EUPHORA RX [id number] BALLOON was prepped and advanced across the Mid RCA , then inflated to 12 SABRINA for 0:08 seconds. Inflation number: 6 The MDT NC EUPHORA RX [id number] BALLOON was reinflated across the Mid RCA, to 12 SABRINA for 0:06 seconds. Inflation number: 7 The MDT NC EUPHORA RX [id number] BALLOON was reinflated across the Mid RCA, to 16 SABRINA for 0:11 seconds. Inflation number: 8 The MDT NC EUPHORA RX [id number] BALLOON was reinflated across the Mid RCA, to 18 SABRINA for 0:15 seconds. Inflation number: 9 The MDT NC EUPHORA RX 3.70U40YR BALLOON was reinflated across the Mid RCA, to 20 SABRINA for 0:10 seconds. Balloon out. Wire out. ACT drawn. Results out of range high seconds. Therapeutic limits - pre-heparin administration 90-150 seconds and monitoring heparin during a vascular procedure >250 seconds. Guide catheter out. 6 new zealander XB 3 guide catheter was inserted over the wire. Guide catheter out. A TR Band was successful obtaining hemostatsis at the Right Radial artery insertion site. Lidocaine 1% infiltrated to the right groin. Arterial access obtained. Venous access obtained. Ultrasound being used to obtain access. Arterial access obtained with micropuncture set. 6 new zealander XB 3 guide catheter was inserted over the wire. ACT drawn. Results 239 seconds. Therapeutic limits - pre-heparin administration 90-150 seconds and monitoring heparin during a vascular procedure >250 seconds. Runthrough guidewire was advanced through the guide catheter to lesion in the mid Circ. Inflation number: 1 The AB TREK 2.75X20 RX BALLOON was reinflated across the Dist CX, to 8 SABRINA for 0:09 seconds. Balloon out. Inflation number : 2 A AB TREK 2.25X12 RX BALLOON was prepped and advanced across the Dist CX , then inflated to 8 SABRINA for 0:05 seconds. Inflation number: 3 The AB TREK 2.25X12 RX BALLOON was reinflated across the Dist CX, to 8 SABRINA for 0:07 seconds. Inflation number: 4 The AB TREK 2.25X12 RX BALLOON was reinflated across the Dist CX, to 8 SABRINA for 0:06 seconds. Balloon out. Inflation Number : 5 A MDT R JR 2.5X18 PRESTON -Lot Number# _[id number] EXP: 08/25/2024 was prepped and advanced across the Dist CX. The stent was deployed at 12 SABRINA for 0:17 seconds. Inflation number: 6 The MDT NC EUPHORA RX [id number] BALLOON was reinflated across the Dist CX, to 10 SABRINA for 0:09 seconds. Stent balloon out over wire. Balloon out. Wire out. Results checked. ACT drawn. Results out of range high seconds. Therapeutic limits - pre-heparin administration 90-150 seconds and monitoring heparin during a vascular procedure >250 seconds. Guide catheter out. A Right femoral angiogram was performed to determine safe placement of closure device. A Suture was successful obtaining hemostatsis at the Right Femoral vein insertion site. A Suture was successful obtaining hemostatsis at the Right Femoral artery insertion site. Arterial sheath flushed and connected to tranducer and pressure bag with heparinized saline. Post Procedure: Pulses reassessed and unchanged. PERRLA. Strong, equal hand baby nurse bilaterally. No VTE prophylaxis required. Medication's Wasted: Other = Fentanyl 25mcg Versed 1 mg. Medication's Wasted: Heparin = 3000 units. Post-op diagnosis: CAD. Complications: None. Estimated blood loss: 5mL-10mL. Responsiveness - Normal response to verbal stimuli; alert and oriented, PERRLA. Airway - Unaffected, no intervention required; spontaneous ventilation. Circulation: W/N/L, pulses unchanged. Nausea/Vomiting: No. Procedure completed. Patient transferred by bed to CPRU. Vital chart was stopped. Access Site Site: Right Radial artery Sheath Size: 6 Fr Hemostasis Method: TR Band Hemostasis Success: Successful Site: Right Femoral vein Sheath Size: 6 Fr Hemostasis Method: Suture Hemostasis Success: Successful Site: Right Femoral artery Sheath Size: 6 Fr Hemostasis Method: Suture Hemostasis Success: Successful Procedure Medications Start: 8:18 AM Stop: 8:18 AM Medication: Versed 1 mg and Fentanyl 25 mcg Amount: 1 Route: I.V. Start: 8:24 AM Stop: 8:24 AM Medication: Nitrogylcerin Amount: 200 mcg Route: I.A. Start: 8:27 AM Stop: 8:27 AM Medication: Heparin Amount: 5000 units Route: I.V. Start: 8:35 AM Stop: 8:35 AM Medication: Heparin Amount: 4000 units Route: I.V. Start: 8:39 AM Stop: 8:39 AM Medication: Versed Amount: 1 mg Route: I.V. Start: 8:51 AM Stop: 8:51 AM Medication: Fentanyl Amount: 25 mcg Route: I.V. Start: 8:52 AM Stop: 8:52 AM Medication: Nitrogylcerin Amount: 300 mcg Route: I.A. Start: 8:54 AM Stop: 8:54 AM Medication: Versed Amount: 1 mg Route: I.V. Start: 8:55 AM Stop: 8:55 AM Medication: Verapamil Amount: 5 mg Route: I.A. Start: 8:56 AM Stop: 8:56 AM Medication: Fentanyl Amount: 25 mcg Route: I.V. Start: 9:23 AM Stop: 9:23 AM Medication: Heparin Amount: 2000 units Route: I.V. I, the attending physician, have reviewed and verified all procedure medications. Yes, all medications given per verbal order History/Risk Factors Hypertension: Yes Dyslipidemia: Yes Peripheral Arterial Disease (PAD): No Myocardial Infarction (DE): Yes Obesity: No Renal Disease: No Tobacco Use: Current/Recent(w/in 1 year) Prior Interventions PCI: Yes CABG: No Valve Surgery: No Date of PCI: 04/02/2021 Report Signatures Finalized by Alvaro Kay MD on 06/13/2023 07:11 PM
--- NOTE | 2023-06-07 08:18 | W.PM.OPSFHP ---
Same Day Surgery H&P Indication for Procedure/HPI DATE OF PROCEDURE: June 07, 2023 CHIEF COMPLAINT/INDICATIONFOR SURGICAL PROCEDURE: Worsening shortness of breath/chest discomfort/abnormal stress test PREOP DIAGNOSIS: Worsening shortness of breath/ chest pain/abnormal stress test PLANNED PROCEDURE: Operation Date: 06/07/23 08:45 Proposed Procedures p Cardiac Catheterization(Left) - Alvaro Kay M.D Possible percutaneous coronary intervention 71-year-old man with past medical history of CAD who has been having worsening shortness of breath and chest discomfort symptoms. Had a recent stress test showing ischemia in the left circumflex artery territory. Also infarction in the RCA territory. Plan for coronary angiogram with possible percutaneous coronary intervention Medications/Allergies* Allergies/Adverse Reactions Allergy/AdvReac Type Severity Reaction Status Date / Time Penicillins Allergy Unknown Unknown Verified 06/04/23 06:44 Current Medications: Generic Name Dose Route Start Last Admin Trade Name Freq PRN Reason Stop Dose Admin Sodium Chloride 1,000 mls @ 50 mls/hr 06/07/23 06:00 06/07/23 06:46 Sodium Chloride 0.9% IV 06/08/23 01:59 Not Given .Q20H ONE Pertinent History/Comorbid Conditions* Medical History (Updated 04/14/21 @ 08:41 by FUAD Badillo) History of subarachnoid hemorrhage ASHD (arteriosclerotic heart disease) DJD (degenerative joint disease), lumbar Statin intolerance COPD (chronic obstructive pulmonary disease) Myocardial infarction Glucose intolerance Dyslipidemia Essential hypertension Tobacco abuse CVA (cerebral vascular accident) Chest pain Surgical History (Updated 03/02/19 @ 14:26 by Ulises Payne MD) S/P angioplasty with stent S/P appendectomy Family History (Updated 03/01/19 @ 09:39 by Tiesha Alvarez RN) CAD (coronary artery disease) Mother Social History Smoking and tobacco/nicotine status: current every day tobacco/nicotine user cigarettes Alcohol intake: former Substance/Drug Use: former Household members: significant other Marital status: Life Partner Current occupational status: disabled Current gender identity: Male Pertinent Exam Findings alert, oriented x 3, clear to auscultation bilaterally and regular rate & rhythm Conscious Sedation Assessment PATIENT ASSESSED PRIOR TO SEDATION, WITH NO CHANGE NOTED: Yes AIRWAY EVAL/ANESTHESIA PLAN: normal airway, ASA III, Local Anesthesia, Risks, benefits & alternatives of sedation and/or procedure discussed and Patient agrees to continue as planned ADDITIONAL INFORMATION: Moderate sedation Recommendations Surgery/Procedure today (Left heart cath with possible percutaneous coronary intervention) Coding Level of Care Code Acute Code for Chg Fwd
--- NOTE | 2023-06-07 12:37 | PC.NURSE ---
received from cardiac laborer cook house at 1030.report received.pt is alert and oriented x 4.denies pain at present.sr/sb on monitor.right wrist with tr band on and inflated.right hand is warm to touch and with brisk capillary refill.palpable radial pulse noted distal to tr band.no hematoma noted.right groin with venous and arterial sheaths in.femoral arterial sheath is intact to pressurized system.drsgs are dry and intact.no hematoma noted.right leg is warm to touch and with brisk capillary refill.dopplerable dp pulse noted.pt instructed in activity restrictions s/p radial and femoral arterial procedures...and instructed to notify staff for any bleeding,numbness,pain,sob,or for any concerns at all.pt verb understanding of instructions
[2023-06-07] MEDS: sodium chloride 0.9% 1,000 ML 100 ML IV ×2 (12:48→18:15)
[2023-06-07] MEDS: metoprolol tartrate 25 mg Tablet 37.5 MG PO (18:15)
[2023-06-07] MEDS: isosorbide mononitrate ER 30 mg Tablet PO (18:18)
--- NOTE | 2023-06-07 19:18 | PC.NURSE ---
right femoral venous sheath pulled at 1600.pressure held x 10 min.no hematoma noted.2x2 drsg applied.right radial tr band slowly deflated and eventually removed at 1630.no hematoma noted.right hand remained warm to touch and with brisk capillary refill.palpable radial pulse noted.2x2 gauze applied.right femoral arterial sheath removed at 1620.pressure held x 20 min.no hematoma noted...but small amt soft bruising noted.right leg remains warm to touch and with brisk capillary refill.dopplerable dp pulse noted.2x2 gauze applied.pt instructed in activity restrictions s/p radial and femoral procedures...and instructed to notify staff for any bleeding,pain,numbness,sob,or for any concerns at all.pt verb understanding of instructions
[2023-06-08] VITALS: BP 116/61; PULSE 77; RESP 15; TEMP 36.8; O2SAT 96
[2023-06-08 04:08] LABS: Basophils % 0.5 %; Eosinophils # 0.2 10^3/uL (0.0-0.8); Eosinophils % 2.9 %; Hematocrit 37.1 % (37-53); Lymphocytes % 24.4 %; Mean Corpuscular HGB Conc 34.5 g/dL (30-55); Mean Corpuscular Hemoglobin 32.4 pg (27-33); Mean Corpuscular Volume 93.9 fl (82-101); Mean Platelet Volume 11.2 fL (7.4-10.4); Monocytes # 0.4 10^3/uL (0.2-0.9); Neutrophils # 5.54 10^3/uL (1.8-7.7); Nucleated Red Blood Cells % 0 %; Platelet Count 192 10^3/cmm (157-399); Red Blood Count 3.95 10^6/uL (3.85-5.65); Red Cell Distribution Width 12.8 % (12.1-15.1); White Blood Count 8.27 10^3/uL (3.29-11.43)
[2023-06-08 04:29] LABS: Anion Gap 11.9 (5-19); Blood Urea Nitrogen 11 mg/dL (8-23); Calcium 8.4 mg/dL (8.5-10.5); Carbon Dioxide 23 mmol/L (22-29); Chloride 105 mmol/L (98-107); Creatinine Clr Calc Pharmacy 102.3359; Glomerular Filtration Rate 113.2 mL/min (90-130); Glucose 90 mg/dL (65-115); Osmolality Calculated 281 mOsm/kg (285-295); Potassium 3.9 mmol/L (3.5-5.1); Sodium 136 mmol/L (136-145)
[2023-06-08 06:00] VITALS: PULSE 82
[2023-06-08 08:07] VITALS: BP 154/65; PULSE 86; RESP 18; TEMP 36.8; O2SAT 96
[2023-06-08] MEDS: lisinopril 20 mg Tablet 40 MG PO (08:21)
[2023-06-08] MEDS: omega-3 fatty acids 1,000 mg Capsule 1000 MG PO (08:21)
[2023-06-08] MEDS: metoprolol tartrate 25 mg Tablet 37.5 MG PO (08:21)
[2023-06-08] MEDS: clopidogrel 75 mg Tablet PO (08:21)
[2023-06-08] MEDS: pantoprazole DR 40 mg Tablet 20 MG PO (08:21)
[2023-06-08] MEDS: isosorbide mononitrate ER 30 mg Tablet PO (08:21)
[2023-06-08] MEDS: aspirin 81 mg EC Tablet PO (08:21)
--- NOTE | 2023-06-08 09:03 | P.DS_ITS ---
Discharge Providers Date of Admission: 06/07/2023 Date of Discharge: June 08, 2023 Attending Provider at Admission: Alvaro Kay MD Attending Provider at Discharge: Alvaro Kay M.D Primary Care Provider: Westley Lyon MD Reason for Visit Reason for Visit: I25.10 Brief History: 71-year-old man with past medical histor y of CAD who has been having worsening shortness of breath and chest discomfort symptoms. Had a recent stress test showing ischemia in the left circumflex artery territory. Also infarction in the RCA territory. Plan for coronary angiogram with possible percutaneous coronary intervention Hospital Course Hospital Course Patient successful revascularization of distal left circumflex artery with 1 stent. Also had successful revascularization of mid to distal RCA with 1 stent. He was observed overnight and stayed stable. Was discharged home on dual antiplatelet therapy. Simvastatin was switched to atorvastatin. Physical Exam Narrative: GENERAL: Patient is alert, awake and oriented x3. [] NECK: No jugular vein distension. [] HEENT: No cyanosis. No icterus. No pallor. [] HEART: Regular S1 and S2. No murmur, rub or gallop. [] LUNGS: Clear to auscultate bilaterally. [] CENTRAL NERVOUS SYSTEM: Grossly nonfocal. [] EXTREMITIES: Lower extremities with no edema bilaterally. Discharge Data Studies Completed and Pending Pending at discharge Category Date Time Status HEART SPECIALIST request for service Routine Exams 06/07/23 07:00 Taken Laboratory Results WBC 8.27 10^3/uL (3.29-11.43) 06/08/23 03:24 RBC 3.95 10^6/uL (3.85-5.65) 06/08/23 03:24 Hgb 12.80 g/dL (11.27-16.99) 06/08/23 03:24 Hct 37.1 % (37-53) 06/08/23 03:24 MCV 93.9 fl (82-101) 06/08/23 03:24 MCH 32.4 pg (27-33) 06/08/23 03:24 MCHC 34.5 g/dL (30-55) 06/08/23 03:24 RDW 12.8 % (12.1-15.1) 06/08/23 03:24 Plt Count 192 10^3/cmm (157-399) 06/08/23 03:24 MPV 11.2 fL (7.4-10.4) H 06/08/23 03:24 Neut % (Auto) 67.0 % 06/08/23 03:24 Lymph % (Auto) 24.4 % 06/08/23 03:24 [place] % (Auto) 5.0 % 06/08/23 03:24 Eos % (Auto) 2.9 % 06/08/23 03:24 Baso % (Auto) 0.5 % 06/08/23 03:24 Neut # (Auto) 5.54 10^3/uL (1.8-7.7) 06/08/23 03:24 Lymph # (Auto) 2.0 10^3/uL (0.8-4.8) 06/08/23 03:24 [place] # (Auto) 0.4 10^3/uL (0.2-0.9) 06/08/23 03:24 Eos # (Auto) 0.2 10^3/uL (0.0-0.8) 06/08/23 03:24 Baso # (Auto) 0.0 10^3/uL (0.0-0.1) 06/08/23 03:24 Nucleated RBC % (auto) 0 % 06/08/23 03:24 Nucleated RBCs # 0.0 /100WBC 06/08/23 03:24 APTT 63.0 SECONDS (23.9-36.7) H 06/07/23 13:50 Sodium 136 mmol/L (136-145) 06/08/23 03:24 Potassium 3.9 mmol/L (3.5-5.1) 06/08/23 03:24 Chloride 105 mmol/L (98-107) 06/08/23 03:24 Carbon Dioxide 23 mmol/L (22-29) 06/08/23 03:24 Anion Gap 11.9 (5-19) 06/08/23 03:24 BUN 11 mg/dL (8-23) 06/08/23 03:24 Creatinine 0.7 mg/dL (0.7-1.2) 06/08/23 03:24 GFR Calculation 113.2 mL/min (90-130) 06/08/23 03:24 Glucose 90 mg/dL (65-115) 06/08/23 03:24 Calculated Osmolality 281 mOsm/kg (285-295) L 06/08/23 03:24 Calcium 8.4 mg/dL (8.5-10.5) L 06/08/23 03:24 Vitals Last Vital Signs Temp 98.2 F 06/08/23 08:07 Pulse 86 06/08/23 08:07 Resp 18 06/08/23 08:07 BP 154/65 06/08/23 08:07 Pulse Ox 96 06/08/23 08:07 O2 Del Method Room Air 06/08/23 08:07 Discharge Plan Discharge Patient Disposition: Home Prescriptions: New clopidogrel 75 mg Tablet 75 mg PO DAILY Qty: 90 3RF atorvastatin 40 mg tablet 40 mg PO DAILY Qty: 90 3RF Continued isosorbide mononitrate 30 mg tablet extended release 24 hr 30 mg PO BID Qty: 180 3RF omega-3 fatty acids 1,000 mg capsule 1,000 mg PO QDAY 90 Days Qty: 90 3RF aspirin 81 mg tablet,delayed release (DR/EC) 81 mg PO DAILY Qty: 90 4RF pantoprazole 40 mg tablet,delayed release (DR/EC) 20 mg PO DAILY Qty: 60 2RF metoprolol tartrate 25 mg tablet 37.5 mg PO BID Qty: 270 3RF nitroglycerin [Nitrostat] 0.4 mg tablet, sublingual 0.4 mg SUBLINGUAL Q5M PRN (Reason: chest pain) 90 Days Qty: 25 3RF lisinopril 40 mg tablet 40 mg PO DAILY Qty: 90 3RF Discontinued simvastatin 40 mg tablet 40 mg PO DAILY Qty: 90 2RF Discharge Orders: Discharge Order (Routine); Ordered 06/08/23 Ordered By: Alvaro Kay Referrals: Westley Lyon MD [Primary Care Provider] - 06/14/23 10:30 am Alexus Mcdaniel FNP [Nurse Practitioner] - 06/21/23 1:00 pm Diet: Cardiac Activity: Increase activity as tolerated Patient Instructions: Atorvastatin (By mouth) (Lipitor, Atorvaliq), Clopidogrel (By mouth) (Plavix), Coronary Angioplasty (DC), Post Angiogram Home Care Instru ctions Discharge Date/Time: 06/08/23 09:49 Discharge Attestations Time Spent in Discharge Care*: less than 30 min Quality Metrics Clinical Quality Measures [ No reported AMI, CVA or VTE this stay] Coding Level of Care Code Acute Code for Chg Fwd
--- NOTE | 2023-06-08 09:48 | PC.NURSE ---
Discharge Note Patient discharged to [home] via [ambulation to [facility]] accompanied by [his ]. Discharge instructions reviewed with patient and/or herbicide service sales representative. Mobile pharmacy medications and/or prescriptions provided. Belongings/home medications returned.
== END 2023-06-08 09:49 | disposition home or self-care (01) ==
LOC: CCL 05:49 → CSU 10:30
PROVIDERS: Family Provider Family Medicine; PCP Family Medicine; Visit Provider Internal Medicine
DX: I25.10 Atherosclerotic heart disease of native coronary artery without angina pectoris (principal); Z79.01 Long term (current) use of anticoagulants; I10 Essential (primary) hypertension; E78.5 Hyperlipidemia, unspecified; I25.2 Old myocardial infarction; Z95.5 Presence of coronary angioplasty implant and graft; J44.9 Chronic obstructive pulmonary disease, unspecified; Z86.73 Personal history of transient ischemic attack (TIA), and cerebral infarction without residual deficits
CPT/HCPCS: 36415; 80048; 85025; 85347; 85730; 93454; 96365; 96374; 96375; 96376; 99152; 99153; C1725; C1769; C1874; C1887; C1894; C9600; C9601; J1644; J2250; J3010; J3490; J7030; Q0163; Q9967

== ENCOUNTER → 2023-06-21 12:54 | Outpatient (BNVA) | payer MEDICARE, SELFPAY | PROVIDERS: Family Provider Family Medicine; PCP Family Medicine; Visit Provider Nurse Practitioner Family | DX: I25.10 Atherosclerotic heart disease of native coronary artery without angina pectoris (principal); F17.210 Nicotine dependence, cigarettes, uncomplicated | CPT/HCPCS: 99213 ==

== ENCOUNTER → 2023-10-19 13:58 | Outpatient (BNVA) | payer MEDICARE, SELFPAY | PROVIDERS: Family Provider Family Medicine; PCP Family Medicine; Visit Provider Internal Medicine | DX: I25.10 Atherosclerotic heart disease of native coronary artery without angina pectoris (principal); E78.5 Hyperlipidemia, unspecified; I10 Essential (primary) hypertension; Z72.0 Tobacco use; Z86.73 Personal history of transient ischemic attack (TIA), and cerebral infarction without residual deficits | CPT/HCPCS: 99214 ==

== ENCOUNTER → 2024-01-18 13:53 | Outpatient (BNVA) | payer MEDICARE, SELFPAY | PROVIDERS: Family Provider Family Medicine; PCP Family Medicine; Visit Provider Internal Medicine | DX: I25.10 Atherosclerotic heart disease of native coronary artery without angina pectoris (principal); E78.5 Hyperlipidemia, unspecified; I10 Essential (primary) hypertension; Z72.0 Tobacco use; Z86.73 Personal history of transient ischemic attack (TIA), and cerebral infarction without residual deficits | CPT/HCPCS: 99214 ==

== ENCOUNTER → 2024-09-26 13:28 | Outpatient (BNVA) | payer MEDICARE, SELFPAY | PROVIDERS: Family Provider Family Medicine; PCP Family Medicine; Visit Provider Internal Medicine | DX: I25.10 Atherosclerotic heart disease of native coronary artery without angina pectoris (principal); I10 Essential (primary) hypertension; E78.5 Hyperlipidemia, unspecified; Z79.02 Long term (current) use of antithrombotics/antiplatelets; Z79.82 Long term (current) use of aspirin; Z72.0 Tobacco use; Z95.5 Presence of coronary angioplasty implant and graft; Z86.73 Personal history of transient ischemic attack (TIA), and cerebral infarction without residual deficits | CPT/HCPCS: 99214 ==